=== PATIENT | female | born 1985 | race Caucasian/White ===

== ENCOUNTER 2022-06-20 15:08 | Outpatient (CLI) | payer OTHER, SELFPAY ==
[2022-06-20 17:46] LABS: Cholesterol* 181 mg/dL (90-199); Triglycerides* 92 mg/dL (40-149)
[2022-06-20 17:47] LABS: HDL Cholesterol* 77 mg/dL (>=50); LDL Cholesterol Calculated 86 mg/dL (<100)
[2022-06-20 18:11] LABS: TSH With Reflex to FT4* 0.957 uIU/mL (0.270-4.200)
[2022-06-22 22:35] LABS: Prolactin 13.1 ng/mL (2.8-29.2)
[2022-06-26 09:29] LABS: Testosterone, Low Level 27 ng/dL (9-55)
== END 2022-06-20 15:09 | disposition home or self-care (01) ==
PROVIDERS: Visit Provider Physician Assistant
DX: N92.6 Irregular menstruation, unspecified (principal)
CPT/HCPCS: 80061; 84146; 84403; 84443

== ENCOUNTER 2022-10-10 14:53 | Outpatient (CLI) | payer OTHER, SELFPAY ==
--- NOTE | 2022-10-10 15:00 | CRLHL7_ITS ---
For Patients: As a result of the Cures Act, medical imaging exams and procedure reports are released immediately into your electronic medical record. You may view this report before your referring provider. If you have questions, please contact your health care provider. INDICATION: First trimester scan, establish dates. COMPARISON: None. TECHNIQUE: Real-time oneal-scale imaging of the pelvis was performed. FINDINGS: Sonographic imaging demonstrates a single living intrauterine gestation. The embryo demonstrates a regular cardiac rate measuring 176 beats per minute. The embryo`s crown-rump length measurement of 1.9 cm corresponds to a gestational age of 8 weeks 3 days with a sonographic due date of May 19, 2023. There is a normal-appearing yolk sac measuring up to 3.2 mm. There are no gross abnormalities noted within the embryo at this early state of development. The placenta has not yet developed. The gestational sac has a normal appearance and there is no evidence of a perigestational hemorrhage. The amount of fluid within the sac appears appropriate for gestational age. The cervix is closed. The myometrium appears normal. The ovaries are of normal size. The right ovary measures 4.8 x 1.2 x 2 cm. The left ovary measures 4.5 x 1.6 x 1.4 cm. Small corpus luteum cyst of in the left ovary measuring 2.0 x 1.4 x 1.6 cm. There is a small left para ovarian cyst measuring 1.4 x 0.8 x 1.3 cm. There are no suspicious fluid collections noted in the cul-de-sac. IMPRESSION: Normal first trimester OB ultrasound exam. Gestational age calculated at 8 weeks 3 days with a sonographic due date of May 19, 2023. Dictated by Hakeem Strauss MD @ 10/10/2022 5:01:01 PM (Electronically Signed)
== END 2022-10-10 14:54 | disposition home or self-care (01) ==
LOC: US 14:54
PROVIDERS: Visit Provider Registered Nurse
DX: Z34.91 Encounter for supervision of normal pregnancy, unspecified, first trimester (principal); Z3A.08 8 weeks gestation of pregnancy
CPT/HCPCS: 76817; 86703; 86803; 86850; 86900; 86901; 87340; 87491; 87591

== ENCOUNTER 2022-10-10 16:05 | Outpatient (CLI) | payer OTHER, SELFPAY ==
[2022-10-10 23:02] LABS: Chlamydia DNA Amplified* NOT DETECTED (No Detected); GC DNA Amplified* NOT DETECTED (No Detected)
== END 2022-10-10 16:06 | disposition home or self-care (01) ==
PROVIDERS: Visit Provider Registered Nurse
DX: Z34.91 Encounter for supervision of normal pregnancy, unspecified, first trimester (principal); Z3A.08 8 weeks gestation of pregnancy
CPT/HCPCS: 86592; 86703; 86762; 86787; 86803; 86850; 86900; 86901; 87086; 87340; 87491; 87591

== ENCOUNTER 2023-01-05 10:47 | Outpatient (CLI) | payer OTHER, SELFPAY ==
--- NOTE | 2023-01-05 11:00 | CRLHL7_ITS ---
For Patients: As a result of the Century Cures Act, medical imaging exams and procedure reports are released immediately into your electronic medical record. You may view this report before your referring provider. If you have questions, please contact your health care provider. INDICATION: Evaluate anatomy. COMPARISON: 10/10/2022 TECHNIQUE: Real time oneal scale imaging of the fetus was performed as well as color Doppler analysis of the umbilical vessels. FINDINGS: Sonographic imaging demonstrates a single living intrauterine gestation. Fetus demonstrates a regular cardiac rate of 141 beats per minute. Fetus has a variable position. The placenta lies right-sided without evidence of placenta previa. The placental edge is 3.1 cm from the internal cervical os. Amniotic fluid volume appears normal. Single deepest vertical pocket: 5.0 cm. The cervix is closed and measures 4.2 cm in length. The composite ultrasound gestational age is calculated at 20 weeks 3 days with an estimated sonographic due date of 05/22/2023. The estimated weight is 391 grams which lies at the 44th %. The following biometric measurements were obtained: Biparietal diameter: 4.5 cm/19 weeks 5 days 8th% Head circumference: 17 point a cm/20 weeks 2 days 13th% Abdominal circumference: 16.4 cm/21 weeks 3 days 59th% Femur length: 3.4 cm/20 weeks 5 days 31st% The HC/AC ratio measures: 1.08 range (1.07-1.25) On anatomic survey, there is a normal appearance of the cerebral ventricles, cavum septi pellucidi, cisterna magna and cerebellum. The nose, lips, and facial profile appear normal. The cervical, thoracic and lumbar spine are well visualized and appear normal. There is a normal four-chamber heart view and the left and right ventricular outflow tracts appear normal. The diaphragm and stomach appear normal. The kidneys and bladder also appear normal. There is a normal three-vessel cord and cord insertion site. The four extremities appear normal. IMPRESSION: Normal OB ultrasound exam with concordance of clinical and sonographic dating. No intrinsic abnormalities noted on anatomic survey. Dictated by Leandro Martinez MD @ 01/05/2023 11:53:20 AM (Electronically Signed)
== END 2023-01-05 10:48 | disposition home or self-care (01) ==
LOC: US 10:47
PROVIDERS: Visit Provider Advanced Practice Midwife
DX: Z34.92 Encounter for supervision of normal pregnancy, unspecified, second trimester (principal); Z3A.20 20 weeks gestation of pregnancy
CPT/HCPCS: 76805

== ENCOUNTER 2023-02-12 14:56 | Outpatient (CLI) | payer OTHER, SELFPAY ==
[2023-02-12 14:30] VITALS: BP 120/78; PULSE 82; RESP 14; TEMP 36.9; O2SAT 98; BMI 35.2
--- NOTE | 2023-02-12 14:48 | ED.NURSE ---
Called OB RN to discuss Pt, per OB assessment protocol. Per Julia OB RN Pt to be seen in OB. UA brought to lab by [facility].
[2023-02-12 15:05] VITALS: PULSE 86; O2SAT 98
[2023-02-12 15:24] VITALS: PULSE 73; RESP 16; TEMP 36.8; O2SAT 95
[2023-02-12 15:25] VITALS: BP 114/67; PULSE 74
[2023-02-12 15:41] VITALS: BP 90/52; PULSE 77
[2023-02-12 15:47] VITALS: BP 103/60; PULSE 75
[2023-02-12 15:50] LABS: Appearance Urine Slightly Cloudy (Clear); Bilirubin Urine Negative (Negative); Blood Urine Negative (Negative); Color Urine Yellow (Yellow); Glucose Urine Negative (Negative); Ketones Urine Negative (Negative); Leukocyte Esterase Urine Negative (Negative); Nitrite Urine Negative (Negative); Protein Urine Negative (Negative); Urobilinogen Urine 0.2 (0.2-1.0)
--- NOTE | 2023-02-12 16:20 | PC.OBNST ---
NST Note NST Note Start: 02/12/23 15:08 Freq: ONCE Status: Active Protocol: Document 02/12/23 16:17 LUIS (Rec: 02/12/23 16:20 AAP [id number]) NST Note 2 Para (# of births) 1 EDC 05/18/23 Gestational Age In Weeks & Days 26 Weeks & 3 Days Patient Presented with Complaint(s) of Other Other Complaints Concerns for elevated blood pressure and reports of shortness of breath and lightheadedness in the am today. Reactive Yes Appropriate for Gestational Age Yes NUSRAT Chaney, RN Date 02/12/23 Reactive Yes Appropriate for Gestational Age Yes NUSRAT Hung, RNC Date 02/12/23 OB NST charge Yes Complete NST Note via Write Note Yes The provider's electronic signature indicates the NST is reactive/appropriate for gestational age. *Note to provider: If an addendum is required, open the patient's chart and click on the note under the Nurse/Allied Health tab.
[2023-02-12 16:26] LABS: Bacteria Urine Moderate; RBC Urine 0-2 (0-2); Squamous Epithelial Cell Urine Few (None-Few); WBC Urine 0-2 (0-5)
== END 2023-02-12 16:15 | disposition home or self-care (01) ==
LOC: OB CLI 14:56 → OB 14:57
PROVIDERS: Visit Provider Advanced Practice Midwife
DX: O09.522 Supervision of elderly multigravida, second trimester (principal); Z3A.25 25 weeks gestation of pregnancy
CPT/HCPCS: 59025; 81003; 81015; 87086; 99213

== ENCOUNTER 2023-02-23 08:38 | Outpatient (CLI) | payer OTHER, SELFPAY | END 2023-02-23 08:39 | disposition home or self-care (01) | LOC: NFLDREF 08:39 | PROVIDERS: Visit Provider Advanced Practice Midwife | DX: O09.523 Supervision of elderly multigravida, third trimester (principal); O26.899 Other specified pregnancy related conditions, unspecified trimester; Z67.91 Unspecified blood type, Rh negative; Z3A.28 28 weeks gestation of pregnancy | CPT/HCPCS: 86592; 86850; J2791 ==

== ENCOUNTER 2023-04-03 08:29 | Outpatient (CLI) | payer OTHER, SELFPAY | END 2023-04-03 08:30 | disposition home or self-care (01) | LOC: NFLDREF 04-04 11:46 | PROVIDERS: Visit Provider Physician Assistant | DX: Z34.93 Encounter for supervision of normal pregnancy, unspecified, third trimester (principal); O09.523 Supervision of elderly multigravida, third trimester; Z3A.33 33 weeks gestation of pregnancy | CPT/HCPCS: 82728 ==

== ENCOUNTER 2023-04-17 08:30 | Outpatient (CLI) | payer OTHER, SELFPAY ==
[2023-04-18 22:06] LABS: Strep B DNA Probe Negative (Negative); Strep B Susceptibility Needed? No
== END 2023-04-17 08:31 | disposition home or self-care (01) ==
LOC: NFLDREF 09:24
PROVIDERS: Visit Provider Physician Assistant
DX: O09.523 Supervision of elderly multigravida, third trimester (principal)
CPT/HCPCS: 87081; 87653

== ENCOUNTER 2023-05-08 15:53 | Outpatient (CLI) | payer OTHER, SELFPAY ==
--- NOTE | 2023-05-08 16:22 | PM.OBLDTN ---
OB - Triage/Final Diagnosis Visit Information Time Seen by Provider: 16:22 Date Seen: 05/08/23 Date of evaluation: 05/08/23 Narrative: Clary was sent over from the clinic. She was seen today for a routine visit, including an NST. The CNM in clinic was concerned about variable decels noted on the NST. There was also concern for ongoing spots in her vision that linger, but resolve in under 30 minutes. She has checked her blood pressure each time this has occurred, and it has been normal (which she has confirmed with her brother who is an OB). Upon further discussion, these vision changes are identical to what she experiences when she has a migraine w/ aura. She denies any hx of preeclampsia with her previous . G 2 P 1 GA: 38.4 movement: present Ctx: q 2-4 minutes, she denies feeling them at this time ROM: denies Bleeding: denies Discharge: denies Current : GBS: negative 1. BMI 36.7. Recommended 11-20lb weight gain. Hemoglobin A1C: 5.1 Recommend daily baby aspirin starting at 12 weeks to reduce risk of preeclampsia. Declines. Recommend weekly NST and/or BPP starting at 37 weeks 2. Advanced Maternal Age Genetic Screening: desires MaterniT 21. Level 2 Ultrasound-declines 3. Rh negative Rhogam at 28 weeks: received Rhogam PP: 4. Anemia. Hgb 10.4 at 28 wks. 34 weeks: 10.6 - iron BID qod Physical: Vital Signs FHTs: Placed on EFM on arrival to triage. Fetus very active, audible movement noted and difficult to trace at first. Hiccups also noted. Suspect possibility of baseline is 125 with accels, but unable to determine that it's not baseline 155 with decels. Assessment: at 38.4 weeks Variable decels on NST in the clinic Vision changes Plan: FHTs monitored, with indeterminant baseline. Reviewed w/ Dr. Mejia, who agreed not likely decelerations. Decision made to proceed with BPP. 6/8, 2 points off for breathing. Placed back on monitor once done, and FHTs 115 baseline, moderate variability, accels present, no decels. Ctx continued q 2-4 min, denies feeling them. BPP 8/10 after reactive NST. Pt DC'd home. Reviewed vision changes are likely migraines with auras. We reviewed the signs to watch for r/t to preeclampsia. She will also call if they do not resolve within 30 mins. Final Diagnosis (1) AMA (advanced maternal age) multigravida 35+: Status: Acute (2) heart rate decelerations affecting management of mother: Status: Acute (3) Migraine aura occurring with and without headache: Status: Acute
--- NOTE | 2023-05-08 17:01 | CRLHL7_ITS ---
For Patients: As a result of the Century Cures Act, medical imaging exams and procedure reports are released immediately into your electronic medical record. You may view this report before your referring provider. If you have questions, please contact your health care provider. INDICATION: Indeterminant NST. COMPARISON: None. TECHNIQUE: Ultrasound OB pelvis biophysical profile. Real time oneal scale imaging of the fetus was performed without non-stress testing. FINDINGS: Sonographic imaging demonstrates a single living intrauterine gestation. The fetus demonstrates a regular cardiac rate of 116 beats per minute. The fetus has a cephalic orientation. The placenta lies along the right uterine wall. Amniotic fluid volume appears normal with single deepest pocket measuring 6.9 cm and the amniotic fluid index measuring 18.8 cm (2/2). The fetus was active (2/2). There was normal flexion and extension of the trunk and extremities (2/2). The fetus did not demonstrate at least 30 seconds of continuous breathing movements (0/2). IMPRESSION: Biophysical profile score 6 out of 8. Dictated by Luz Pérez MD @ 05/08/2023 6:44:23 PM (Electronically Signed)
--- NOTE | 2023-05-08 18:44 | PC.OBNST ---
NST Note NST Note Start: 05/08/23 15:57 Freq: ONCE Status: Active Protocol: Document 05/08/23 18:40 JEAN CARLOSDebra (Rec: 05/08/23 18:43 JEAN CARLOSDebra [id number]) NST Note 2 Para (# of births) 1 EDC 05/18/23 Gestational Age In Weeks & Days 38 Weeks & 4 Days High Risk Factors Advanced Maternal Age Patient Presented with Complaint(s) of Other Other Complaints 3 Variables were observed during a routine NST in [facility] visit. Pt sent down to OB for further observation. Baseline indeterminant, US/BPP ordered and 09/28, -2 for breathing. NST then reactive Reactive Yes Appropriate for Gestational Age Yes RN Zoey RN Date 05/08/23 Reactive Yes Appropriate for Gestational Age Yes NUSRAT Rust RN Date 05/08/23 OB NST charge Yes Complete NST Note via Write Note Yes The provider's electronic signature indicates the NST is reactive/appropriate for gestational age. *Note to provider: If an addendum is required, open the patient's chart and click on the note under the Nurse/Allied Health tab.
== END 2023-05-08 18:35 | disposition home or self-care (01) ==
LOC: OB OUT 15:55 → OB 15:55
PROVIDERS: Visit Provider Advanced Practice Midwife
DX: O09.523 Supervision of elderly multigravida, third trimester (principal); O36.8330 Maternal care for abnormalities of the fetal heart rate or rhythm, third trimester, not applicable or unspecified; Z3A.38 38 weeks gestation of pregnancy
CPT/HCPCS: 59025; 76819; G0463

== ENCOUNTER 2023-05-14 17:43 | Outpatient (CLI) | payer OTHER, SELFPAY ==
--- OUTSIDE RECORDS SUMMARY | 2023-05-14 17:44 | XMS_ITS | Clinical Summary ---
Author Name Unknown Organization [id number] Address [place], [place] [address] Care Team Providers Care Junior Software Engineer Name Role Phone Pcp, No Primary Care Provider Unavailabl e Allergies Active Allergy Reactions Criticality Noted Date Comments Penicillins Hives 11/20/2008 Medications Medication Sig Dispensed Refills Start Date End Date Status Ferrous Gluconate 324 mg (38 mg iron) tablet TAKE 1 TABLET(324MG) BY MOUTH DAILY TAKE WITH FOOD. 0 01/06/2021 Active ibuprofen (ADVIL; MOTRIN) 600 mg tablet Take 600 mg by mouth every 6 hours if needed. 0 02/02/2021 Active Active Problems Problem Noted Date Diagnosed Date s/p right middle finger mass excision, DOS: 11/28/[address] Angelito Cervantes 12/08/2016 Finger mass, right 11/22/2016 Resolved Problems Problem Noted Date Diagnosed Date Resolved Date Endometriosis 04/12/2012 04/12/2012 Immunizations Name Administration Dates Next Due Tdap 11/25/2015 Family History Medical History Relation Name Comments Cancer Maternal Grandfather jaw Hypertension Maternal Grandfather Lymphoma Maternal Grandmother Heart Disease Paternal Grandfather Cancer-breast Paternal Grandmother Relation Name Status Comments Maternal Grandfather Maternal Grandmother Paternal Grandfather Paternal Grandmother Social History Tobacco Use Types Packs/Day Years Used Date Smoking Tobacco: Former Cigarettes 0.2 9.2 S tarted: 02/12/2014 Smokeless Tobacco: Never Tobacco Cessation:Counseling Given: Yes Alcohol Use Standard Drinks/Week Comments Not Currently 0 (1 standard drink = 0.6 oz pur e alcohol) heavy social/ PHQ-2 Answer Date Recorded PHQ-2 Score 1 06/22/2018 Social Connections Answer Date Recorded Frequency of Communication with Friends and Fami ly Not on file 04/23/2021 Financial Resource Strain Answer Date R ecorded Difficulty of Paying Living Expenses Not on file 04/23/2021 Difficulty of Paying Living Expenses Not on file 04/23/2021 Sex and Gender Information Value Date Recorded Sex Assigned at Not on file Gender Identity Not on file Sexual Orientation Not on file Obstetrics History Last Filed Vital Signs Vital Sign Reading Time Taken Comments Blood Pressure 121/77 02/09/2021 8:57 AM CDT Pulse 63 02/09/2021 8:57 AM CDT Temperature 37 ??C (98.6 ??F) 02/09/2021 8:57 AM CDT Respiratory Rate 12 04/25/2017 11:27 AM SCIENTIFIC ARTIST Oxygen Saturation 98% 02/09/2021 8:57 AM CDT Inhaled Oxygen Concentration - - Weight 90.4 kg (199 lb 3.2 oz) 02/09/2021 8:57 A M CDT Height 168.8 cm (5' 6.44) 12/18/2017 10:39 AM C DT Body Mass Index 31.73 12/18/2017 10:39 AM CDT Plan of Treatment Health Maintenance Due Date Last Done Comments COVID-19 vaccine series (#1) 1987 HIV for age 15-65 2002 Hepatitis C screening for age 18-79 2005 Depression screening for age 12+ 11/13/2018 11/13/2017, 10/04/2016, 10/04/2016, Additional history exists BMI (ht and wt on same day) for age 18+ 12/18/2018 12/18/2017, 11/13/2017, 05/18/2017, Additional history exists Influenza for age 9-49 12/22/2022 Pap test for age 21-65 03/21/2024 , 03/21/2021, 10/04/2016, Additional history exists Tetanus booster 11/24/2025 11/25/2015 Tdap Completed 11/25/2015 Pneumococcal series for age 6-64 Aged Out No longer eligible based on patient's age to complete this topic Care Teams Junior Software Engineer Relationship Specialty Start Date End Date Pcp, No . PCP - General 02/09/21
--- OUTSIDE RECORDS SUMMARY | 2023-05-14 17:45 | XMS_ITS | Data Portability ---
Author Name Unknown Address [address] [place] [address] Phone [phone] Organization [facility] [employer], autoContract - [id number] Address [address] [place] [address] Assessment No assessment recorded. Plan of Treatment Reminders Order Date Submit Date Provider Last Modified By Organization Details Last Modified Time Details Appointments None recorded. Lab urinalysis , dipstick 2019 020 In-House Results, For Internal Use Only, Do Not Delete/merge, [id number] 13:57:54 HPV E6+E7 mRNA, reflex to HPV 16+18+45 2019 020 [facility], [address] [place], [address], 0 18:44:29 Referral None recorded. Procedures None recorded. Surgeries None recorded. Imaging None recorded. Medication Orders None recorded. Patient TargetsNo targets recorded. Patient Instructions Encounter Date Encounter Id Patient Instructions Last Modified By Organization Details Last Modified Time 10/23/2019 [id number] Desire expectant management for now. Pt instructed to call if decide to discuss control options. Not available 10/23/2019 09:43:54 09/25/2019 [id number] healthy living, preventative services information Not available 09/25/2019 13:57:54 nutrition tips - healthy start on eating smart Not available 09/25/2019 13:57:54 Reason for Referral None Reported. Results Created Date Observation Date Name Description Value Unit Range Abnormal Flag LastModifiedBy Organization Detail LastModifiedTime 09/25/2019 urina lysis , dipst ick Unknown Analyte Clean Catch Not Available In-House Results For Internal Use Only, Do Not Delete/merge, 09/25/2019 10:51:31 09/25/2019 urina lysis , dipst ick Unknown Analyte Negati ve Not Available In-House Results For Internal Use Only, Do Not Delete/merge, 09/25/2019 10:51:31 09/25/2019 urina lysis , dipst ick Unknown Analyte Negati ve Not Available In-House Results For Internal Use Only, Do Not Delete/merge, 09/25/2019 10:51:31 09/25/2019 urina lysis , dipst ick Unknown Analyte Negati ve Not Available In-House Results For Internal Use Only, Do Not Delete/merge, 09/25/2019 10:51:31 09/25/2019 urina lysis , dipst ick Unknown Analyte 1.000 Not Available In-House Results For Internal Use Only, Do Not Delete/merge, 09/25/2019 10:51:31 09/25/2019 urina lysis , dipst ick Unknown Analyte Negati ve Not Available In-House Results For Internal Use Only, Do Not Delete/merge, 09/25/2019 10:51:31 09/25/2019 urina lysis , dipst ick Unknown Analyte 5.0 Not Available In-House Results For Internal Use Only, Do Not Delete/merge, 09/25/2019 10:51:31 09/25/2019 urina lysis , dipst ick Unknown Analyte Negati ve Not Available In-House Results For Internal Use Only, Do Not Delete/merge, 09/25/2019 10:51:31 09/25/2019 urina lysis , dipst ick Unknown Analyte 0.2 Not Available In-House Results For Internal Use Only, Do Not Delete/merge, 09/25/2019 10:51:31 09/25/2019 urina lysis , dipst ick Unknown Analyte negati ve Not Available In-House Results For Internal Use Only, Do Not Delete/merge, 09/25/2019 10:51:31 09/25/2019 urina lysis , dipst ick Unknown Analyte Negati ve Not Available In-House Results For Internal Use Only, Do Not Delete/merge, [id number] 09/25/2019 10:51:31 09/25/2019 urina lysis , dipst ick Unknown Analyte Yellow Not Available In-House Results For Internal Use Only, Do Not Delete/merge, 09/25/2019 10:51:31 09/25/2019 urina lysis , dipst ick Unknown Analyte Clear Not Available In-House Results For Internal Use Only, Do Not Delete/merge, 09/25/2019 10:51:31 09/25/19 20 09/25/2019 HPV E6+E7 mRNA, refle x to HPV 16+18 +45 other info other inform ation Not Available [facility] [address] [place], [address], 09/29/2019 18:44:29 09/25/1909/29/2019 HPV E6+E7 mRNA, refle x to HPV 16+18 +45 cervix,thinp rep vial Not Available [facility] [address] [facility], [place], [address], 09/29/2019 18:44:29 09/25/19 20 09/29/2019 HPV E6+E7 mRNA, refle x to HPV 16+18 +45 HPV HR (high risk) result negati ve Not Available [facility] [address] [facility], [place], [address], 09/29/2019 18:44:29 Result Notes None recorded. Problems Name Status Onset Date Resolution Date Notes Provider Name and Address Organization Details Recorded Time History of abnormal cervical Papanicolaou smear Active 09/25/19 20 Camille Alejo [facility] [employer] [facility] 09/25/2019 10:57:26 History of human papilloma virus infection Active 09/25/19 [facility] 09/25/2019 10:57:36 Cigarette smoker Active 09/25/19 Camille Alejo [facility] 09/25/2019 14:59:48 Problem Notes None recorded. Procedures Surgical History Date Name Laterality Status Provider Name and Address Organization Details Recorded Time 0 Nexplanon / Implanon Removal Procedure Note ([facility] 09:28:50 0 Date of Last Pap Smear [facility]30[facility]2019 16:47:05 ENT- Other [facility]/25/2019 15:01:21 Imaging Results None recorded. Procedure Notes None recorded. Medical Equipment None Reported. Allergies Allergen ID Allergen Name Allergen Category Reaction Reaction Severity Criticality Documentation Date Start Date Code Code System Note Provider Name and Address Organization Details Recorded Time 0476662 Medicinal product containin g penicilli n and acting as antibacte rial agent (product) medicatio n rash Not available Not available 09/25/2019 25213 05 SNOMED [facility] 0 10:55:34 Medications Name Sig Start Date Stop Date Status Note LastModified by Organization Details LastModified Time Nexplanon 68 mg subdermal implant Inject by subcutaneous route. active Not Available Not Available No t Available Vitals Date Recorded Body weight Body mass index (BMI) Body height Heart rate Systolic blood pressure Diastolic blood pressure Provider Name and Address Organization Details Last Updated DateTime 0 37280.9 5 g 34.9 kg/m2 167.64 cm 66 /min 122 mm[Hg] 76 mm[Hg] Camille Alejo [facility] 0 10:55:19 Date Recorded Body height Body mass index (BMI) Body weight Systolic blood pressure Diastolic blood pressure Provider Name and Address Organization Details Last Updated DateTime 10/23/2019 167.64 cm 34.9 kg/m2 03548.95 g 122 mm[Hg] 76 mm[Hg] Camille Alejo [facility] 0 09:27:49 Social History Question Answer Notes LastModified by Organizat ion Details LastModified Time Tobacco Smoking Status Current Every Day [facility] 09/25/2019 14:59:57 What Is Your Level Of Alcohol Consumption? Occasional [email or web address] Information not available 09/25/2019 Is Blood Transfusion Acceptable In An Emergency? Yes [email or web address] Information not available 09/25/2019 What Is Your Level Of Caffeine Consumption? Moderate [email or web address] Information not available 09/25/2019 How Much Tobacco Do You Chew? None [email or web address] Information not available 09/25/2019 What Type Of Diet Are You Following? REGULAR [email or web address] Information not available 09/25/2019 Do You Or Have You Ever Used E-cigarettes Or Vape? Never Used Electronic Cigarettes [email or web address] Information not available 09/25/2019 Education Post Graduate [email or web address] Informatio n not available 09/25/2019 What Is Your Occupation? Teacher [email or web address] Information not available 09/25/2019 How Many Days In The Past Year Have You Had A Heavy Drinking Consumption (4+ Female, 5+ Male)? 0 [email or web address] Information not available 09/25/2019 Illicit Drugs? No [email or web address] Informati on not available 09/25/2019 History Of Domestic Violence No Information not available 09/25/2019 Marital Status [email or web address] Informati on not available 09/25/2019 Seat Belts Used Routinely Yes [email or web address] Information not available 09/25/2019 Do You Or Have You Ever Used Smokeless Tobacco? Never Used Smokeless Tobacco [email or web address] Information not available 09/25/2019 How Much Tobacco Do You Smoke? 0.25 PPD [email or web address] Information not available 09/25/2019 On What Date Was Tobacco Cessation Counseling Provided? 09/25/2019 [email or web address] Information not available 09/25/2019 How Many Years Have You Smoked Tobacco? 10 [email or web address] Information not available 09/25/2019 Do You Have Symptoms Associated With Zika Virus (fever, Rash, Joint Pain, Or Conjunctivitis)? No [email or web address] Information not available 09/25/2019 Have You Recently (within The Last 12 Weeks, Or During A Current ) Traveled To Or Lived In A Zika-affected Area? No [email or web address] Information not available 09/25/2019 Sex: Female Functional Status Question Answer Note LastModified by Organizat ion Details LastModified Time Urinary incontinence assessment performed? Yes [email or web address] Information not available 09/25/2019 What is your exercise level? Occasional [email or web address] Information not available 09/25/2019 Mental Status None recorded. Family History Relationship Description Onset Age of this Age Resolved Age Notes Maternal Grandfather Hypertensive disorder Paternal Grandfather Heart disease Medical History Condition Response ID-Chicken Pox/Shingles Y Gynecological History Statement/Question Response Current Control Method: Nexplanon Sexually active Y Date of LMP 09/14/2019 History of Sexually Transmitted Infectio n Y HPV Test Negative HPV Vaccination Not applicable History of abnormal PAP Yes Date of Last Pap Smear 09/25/2019 Age at Menarche 20 Sexual orientation Heterosexual History of Vulvar Dysplasia N Obstetrics History GPAL:G 0 P 0 0 0 0 Past Encounters Encounter ID Performer Location Encounter Start Date Encounter Closed Date Diagnosis/Indication [id number] DR KLARISSA BOLDEN MD [id number] R [address] [place] [address] 09/25/2019 10:03:24 09/25/2019 11:37:28 Gynecologic examination Increased body mass index History of human papilloma virus infection Cigarette smoker [id number] DR KLARISSA BOLDEN MD [id number] R [address] [place] [address] 10/23/2019 09:03:02 10/23/2019 09:48:58 Removal of subcutaneous contraceptive Health Concerns Section Related Observation LastModified by Organization Detai ls LastModified Time None Recorded Concern Status LastModified by Organization Details LastModified Time None Recorded Advance Directives Directive None Recorded Payers Encounter Date Sequence Insurance Name Policy Number Policy Yousif Covered Member ID Yousif Member ID Guarantor Name 10/23/2019 1 [employer] [id number] Roshan Diaz [id number] Clary Diaz 09/25/2019 1 [employer] [id number] Roshan Diaz [id number] Clary Diaz Notes Date Note Type Note Provider Name and Address Organization Details Recorded Time 09/25/2019 text/html HPI Notes: Annua l Premenopausal ([facility]) Reported by patient. Patient Relationship to Practice: new patient Current Medical History: no active medical problems; no recent surgeries or hospitalizations Relevant Family History: no family history of breast cancer; no family history of ovarian cancer; no family history of uterine cancer; no family history of colon cancer; no family history of blood clots/DVT Contraceptive Method: Current Method Used: Nexplanon; satisfied Sexually Active: Yes: Health/Prevention: Exercise: yes; Seat Belt Use: yes; Tobacco Use: yes Pap Smear +/- HPV Cotesting: due In office for WW exam. No complaints. Using nexplanon for contraception, due to be removed next month. Denies any GI or symptoms. DR KLARISSA BOLDEN MD [address], [address], [place], [address], [facility] 09/26/2019 23:27:12 10/23/2019 text/html HPI Notes: 34 y/ o Patient here for Nexplanon removal. Was inserted 3 years ago. Does not want to resume any contraceptive method at current time. No complaints. DR KLARISSA BOLDEN MD [address], [address], [place], [address], [facility] [employer] 10/23/2019 09:43:59 OBGyn Episode No OBEpisode recorded.
[2023-05-14 18:05] VITALS: BP 119/72; PULSE 76; TEMP 37.4
--- NOTE | 2023-05-14 18:32 | PC.OBNST ---
The provider's electronic signature indicates the NST is reactive/appropriate for gestational age. *Note to provider: If an addendum is required, open the patient's chart and click on the note under the Nurse/Allied Health tab.
== END 2023-05-14 18:24 | disposition home or self-care (01) ==
LOC: OB OUT 17:43 → OB 17:44
PROVIDERS: Visit Provider Advanced Practice Midwife
DX: O47.1 False labor at or after 37 completed weeks of gestation (principal); Z3A.39 39 weeks gestation of pregnancy
CPT/HCPCS: 59025; G0463

== ENCOUNTER 2023-05-17 17:48 | Outpatient (CLI) | payer OTHER, SELFPAY ==
--- OUTSIDE RECORDS SUMMARY | 2023-05-17 17:51 | XMS_ITS | Data Portability ---
Author Name Unknown Address [address] [place] [address] Phone [phone] Organization [facility] [employer], autoContract - [id number] Address [address] [place] [address] Assessment No assessment recorded. Plan of Treatment Reminders Order Date Submit Date Provider Last Modified By Organization Details Last Modified Time Details Appointments None recorded. Lab urinalysis , dipstick 2019 020 In-House Results, For Internal Use Only, Do Not Delete/merge, [id number] 0 13:57:54 HPV E6+E7 mRNA, reflex to HPV 16+18+45 2019 020 [facility], [address] [place], [address], 0 18:44:29 Referral None recorded. Procedures None recorded. Surgeries None recorded. Imaging None recorded. Medication Orders None recorded. Patient TargetsNo targets recorded. Patient Instructions Encounter Date Encounter Id Patient Instructions Last Modified By Organization Details Last Modified Time 10/23/2019 [id number] Desire expectant management for now. Pt instructed to call if decide to discuss control options. Not available 10/23/2019 09:43:54 09/25/2019 [id number] healthy living, preventative services information Not available [...] For Internal Use Only, Do Not Delete/merge, [id number] 09/25/2019 10:51:31 09/25/2019 urina lysis , dipst [...] other info other inform ation Not Available [facility] [address] [place], [address], 09/29/2019 18:44:29 09/25/1909/29/2019 HPV E6+E7 mRNA, refle x to HPV 16+18 +45 cervix,thinp rep vial Not Available [facility] [address] [facility], [place], [address], 09/29/2019 18:44:29 09/25/19 20 09/29/2019 HPV E6+E7 mRNA, refle x to HPV 16+18 +45 HPV HR (high risk) result negati ve Not Available [facility] [address] [facility], [place], [address], 09/29/2019 18:44:29 Result Notes None recorded. Problems Name Status Onset Date Resolution Date Notes Provider Name and Address Organization Details Recorded Time History of abnormal cervical Papanicolaou smear Active 09/25/19 20 Camille Alejo [facility] [employer] [facility] 09/25/2019 10:57:26 History of human papilloma virus infection Active 09/25/19 [facility] [employer] [facility] 09/25/2019 10:57:36 Cigarette smoker Active 09/25/19 Camille Alejo [facility] [employer] [facility] 09/25/2019 14:59:48 Problem Notes None recorded. Procedures Surgical History Date Name Laterality Status Provider Name and Address Organization Details Recorded Time 0 Nexplanon / Implanon Removal Procedure Note ([facility]) [facility] 10/23/2019 09:28:50 0 Date of Last Pap Smear [facility] 09/30/2019 16:47:05 ENT- Other surgery [facility] 09/25/2019 15:01:21 Imaging Results None recorded. Procedure Notes None recorded. Medical Equipment None Reported. Allergies Allergen ID Allergen Name Allergen Category Reaction Reaction Severity Criticality Documentation Date Start Date Code Code System Note Provider Name and Address Organization Details Recorded Time 2066712 Medicinal product containin g penicilli n and acting as antibacte rial agent (product) medicatio n rash Not available Not available 09/25/2019 52108 05 SNOMED [facility] 0 10:55:34 Medications Name Sig Start Date Stop Date Status Note LastModified by Organization Details LastModified Time Nexplanon 68 mg subdermal implant Inject by subcutaneous route. active Not Available Not Available No t Available Vitals Date Recorded Body weight Body mass index (BMI) Body height Heart rate Systolic blood pressure Diastolic blood pressure Provider Name and Address Organization Details Last Updated DateTime 0 72503.9 5 g 34.9 kg/m2 167.64 cm 66 /min 122 mm[Hg] 76 mm[Hg] Camille Alejo [facility] 0 10:55:19 Date Recorded Body height Body mass index (BMI) Body weight Systolic blood pressure Diastolic blood pressure Provider Name and Address Organization Details Last Updated DateTime 10/23/2019 167.64 cm 34.9 kg/m2 12489.95 g 122 mm[Hg] 76 mm[Hg] Camille Alejo [facility] 0 09:27:49 Social History Question Answer Notes LastModified by Organizat ion Details LastModified Time Tobacco Smoking Status Current Every Day Smoker [facility] 09/25/2019 14:59:57 What Is Your Level Of Alcohol Consumption? Occasional [email or web address] Information not available 09/25/2019 Is Blood Transfusion Acceptable In An Emergency? Yes [email or web address] Information not available 09/25/2019 What Is Your Level Of Caffeine Consumption? Moderate [email or web address] Information not available 09/25/2019 How Much Tobacco Do You Chew? None [email or web address] Information not available 09/25/2019 What Type Of Diet Are You Following? REGULAR [email or web address] Information not available 09/25/2019 Do You Or Have You Ever Used E-cigarettes Or Vape? Never Used Electronic Cigarettes [email or web address] Information not available 09/25/2019 Education Post Graduate [email or web address] Informatio n not available 09/25/2019 What Is Your Occupation? Teacher [email or web address] Information not available 09/25/2019 How Many Days In The Past Year Have You Had A Heavy Drinking Consumption (4+ Female, 5+ Male)? 0 [email or web address] Information not available 09/25/2019 Illicit Drugs? No [email or web address] Informati on not available 09/25/2019 History Of Domestic Violence No [email or web address] Information not available 09/25/2019 Marital Status [email or web address] Informati on not available 09/25/2019 Seat Belts Used Routinely Yes cssumrnlo41 Information not available 09/25/2019 Do You Or Have You Ever Used Smokeless Tobacco? Never Used Smokeless Tobacco ncburyqxi00 Information not available 09/25/2019 How Much Tobacco Do You Smoke? 0.25 PPD Information not available 09/25/2019 On What Date Was Tobacco Cessation Counseling Provided? 09/25/2019 [email or web address] Information not available 09/25/2019 How Many Years Have You Smoked Tobacco? 10 [email or web address] Information not available 09/25/2019 Do You Have Symptoms Associated With Zika Virus (fever, Rash, Joint Pain, Or Conjunctivitis)? No [email or web address] Information not available 09/25/2019 Have You Recently (within The Last 12 Weeks, Or During A Current ) Traveled To Or Lived In A Zika-affected Area? No [email or web address] Information not available 09/25/2019 Sex: Female Functional Status Question Answer Note LastModified by Organizat ion Details LastModified Time Urinary incontinence assessment performed? Yes [email or web address] Information not available 09/25/2019 What is your exercise level? Occasional [email or web address] Information not available 09/25/2019 Mental Status None [...] Encounter Start Date Encounter Closed Date Diagnosis/Indication [id number] DR KLARISSA BOLDEN MD [id number] R [address] [place] [address] 09/25/2019 10:03:24 09/25/2019 11:37:28 Gynecologic examination Increased body mass index History of human papilloma virus infection Cigarette smoker [id number] DR KLARISSA BOLDEN MD [id number] R [address] [place] [address] 10/23/2019 09:03:02 10/23/2019 09:48:58 Removal of subcutaneous contraceptive Health Concerns Section Related Observation LastModified by Organization Detai ls LastModified Time None Recorded Concern Status LastModified by Organization Details LastModified Time None Recorded Advance Directives Directive None Recorded Payers Encounter Date Sequence Insurance Name Policy Number Policy Yousif Covered Member ID Yousif Member ID Guarantor Name 10/23/2019 1 [employer] [id number] Roshan Diaz [id number] Clary Diaz 09/25/2019 1 [employer] [id number] Roshan Diaz [id number] Clary Diaz Notes Date Note Type Note Provider Name and Address Organization Details Recorded Time 09/25/2019 text/html HPI Notes: Annua l Premenopausal ([facility]) Reported by patient. Patient Relationship to Practice: [...] symptoms. DR KLARISSA BOLDEN MD [address], [address], [place], [address], [facility] [employer] [facility] 09/26/2019 23:27:12 10/23/2019 text/html HPI Notes: 34 y/ o Patient here for Nexplanon removal. Was inserted 3 years ago. Does not want to resume any contraceptive method at current time. No complaints. DR KLARISSA BOLDEN MD [address], [place], [address], [facility] [employer] 10/23/2019 09:43:59 OBGyn Episode No OBEpisode recorded.
--- OUTSIDE RECORDS SUMMARY | 2023-05-17 17:51 | XMS_ITS | Clinical Summary ---
Author Name Unknown Organization [employer] [facility] Address [place], [place] [address] Care Team Providers Care Rotary Drum Dyer Name Role Phone Pcp, No Primary Care [...] Used Date Smoking Tobacco: Former Cigarettes 0.2 9.3 S tarted: 02/12/2014 Smokeless Tobacco: Never Tobacco [...] CDT Respiratory Rate 12 04/25/2017 11:27 AM BEEF BONER Oxygen Saturation 98% 02/09/2021 8:57 AM CDT [...] age to complete this topic Care Teams Rotary Drum Dyer Relationship Specialty Start Date End Date Pcp, No . PCP - General 02/09/21
[2023-05-17 18:27] VITALS: BP 120/76; PULSE 67
--- NOTE | 2023-05-17 18:42 | PM.OBLDTN ---
OB - Triage/Final Diagnosis Visit Information Date of evaluation: 05/17/23 Narrative: The patient is a 38 year old 2 para 1 at 39.6 weeks gestation by LMP accompanied by her partner, who presents with regular contractions every 2-4 minutes. She is olena regularly and is breathing through some of them but feels that they are still pretty mild. She denies leaking fluid and was appreciating good movement. We discussed options of going home to labor with labor precautions vs staying for 1-2 hours and rechecking cervix for change. She would like to stay for 1 hour to see if she makes any cervical change in that time. On admit she was found to be 2cm/60%/-3 per RN exam. Evaluation Cervical dilation (cm): 2 Cervical effacement (%): 60 Vital signs: Vital Signs - 24 hr 05/17/23 18:27 Pulse Rate 67 Blood Pressure 120/76 Fetus (Single) Heart Rate Baseline: 120 Manufacturing Machine Operator Variability: Moderate (6-25) Monitor Accelerations: Present Monitor Decelerations: None Station: -3 Final Diagnosis (1) AMA (advanced maternal age) multigravida 35+: Status: Acute (2) : Status: Acute (3) Type A blood, Rh negative: Status: Acute
--- NOTE | 2023-05-17 19:18 | PC.OBNST ---
NST Note NST Note Start: 05/17/23 17:52 Freq: ONCE Status: Active Protocol: Document 05/17/23 19:15 [facility] (Rec: 05/17/23 19:18 [facility] [id number]) NST Note 2 Para (# of births) 1 EDC 05/18/23 Gestational Age In Weeks & Days 39 Weeks & 6 Days High Risk Factors Advanced Maternal Age Patient Presented with Complaint(s) of Contractions/cramping Reactive Yes Appropriate for Gestational Age Yes NUSRAT [place] Date 05/17/23 Reactive Yes Appropriate for Gestational Age Yes NUSRAT [place] Date 05/17/23 OB NST charge Yes Complete NST Note via Write Note Yes The provider's electronic signature indicates the NST is reactive/appropriate for gestational age. *Note to provider: If an addendum is required, open the patient's chart and click on the note under the Nurse/Allied Health tab.
== END 2023-05-17 19:25 | disposition home or self-care (01) ==
LOC: OB OUT 17:49 → OB 17:49
PROVIDERS: Visit Provider Advanced Practice Midwife
DX: O47.1 False labor at or after 37 completed weeks of gestation (principal); O09.523 Supervision of elderly multigravida, third trimester; Z3A.39 39 weeks gestation of pregnancy
CPT/HCPCS: 59025; G0463

== ENCOUNTER 2023-05-25 12:12 | Outpatient (CLI) | payer OTHER, SELFPAY ==
--- OUTSIDE RECORDS SUMMARY | 2023-05-25 12:14 | XMS_ITS | Clinical Summary ---
Author Name Unknown Organization [employer] [facility] Address [place], [place] [address] Care Team Providers Care Foil Cutter Name Role Phone Pcp, No Primary Care [...] CDT Respiratory Rate 12 04/25/2017 11:27 AM NURSING PROJECT COORDINATOR Oxygen Saturation 98% 02/09/2021 8:57 AM CDT [...] age to complete this topic Care Teams Foil Cutter Relationship Specialty Start Date End Date Pcp, No . PCP - General 02/09/21
--- NOTE | 2023-05-25 12:15 | CRLHL7_ITS ---
For Patients: As a result of the Century Cures Act, medical imaging exams and procedure reports are released immediately into your electronic medical record. You may view this report before your referring provider. If you have questions, please contact your health care provider. INDICATION: Post-dates COMPARISON: 05/08/2023 TECHNIQUE: Real time oneal scale imaging of the fetus was performed. Without non-stress testing. FINDINGS: Sonographic imaging demonstrates a single living intrauterine gestation. Fetus demonstrates a regular cardiac rate of 159 beats per minute. Fetus has a vertex position. The amniotic fluid volume appears normal and there is a single deepest pocket measurement of 8.0 cm. The fetus was active and demonstrated normal breathing movements. There was normal flexion and extension of the trunk and extremities. IMPRESSION: Normal biophysical profile score of 8 out of 8. Dictated by Leandro Martinez MD @ 05/25/2023 1:48:58 PM (Electronically Signed)
--- OUTSIDE RECORDS SUMMARY | 2023-05-25 12:15 | XMS_ITS | Data Portability ---
Author Name Unknown Address [address] [place] [address] Phone [phone] Organization [facility] [employer], [employer]Contract - [id number] [facility] Address [address] [place] [address] Assessment No assessment recorded. Plan of Treatment Reminders Order Date Submit Date Provider Last Modified By Organization Details Last Modified Time Details Appointments None recorded. Lab urinalysis , dipstick 2019 020 In-House Results, For Internal Use Only, Do Not Delete/merge, [id number] 13:57:54 HPV E6+E7 mRNA, reflex to HPV 16+18+45 2019 020 [facility], [address] [place], [address], 0 18:44:29 Referral None recorded. Procedures None recorded. Surgeries None recorded. Imaging None recorded. Medication Orders None recorded. Patient TargetsNo targets recorded. Patient Instructions Encounter Date Encounter Id Patient Instructions Last Modified By Organization Details Last Modified Time 10/23/2019 [id number] Desire expectant management for now. Pt instructed to call if decide to discuss control options. Not available 10/23/2019 09:43:54 09/25/2019 [id number] healthy living, preventative services information Not available [...] For Internal Use Only, Do Not Delete/merge, [id number] 09/25/2019 10:51:31 09/25/2019 urina lysis , dipst [...] other info other inform ation Not Available [facility] [address] [place], [address], 09/29/2019 18:44:29 09/25/1909/29/2019 HPV E6+E7 mRNA, refle x to HPV 16+18 +45 cervix,thinp rep vial Not Available [facility] [address] [facility], [place], [address], 09/29/2019 18:44:29 09/25/19 20 09/29/2019 HPV E6+E7 mRNA, refle x to HPV 16+18 +45 HPV HR (high risk) result negati ve Not Available [facility] [address] [facility], [place], [address], 09/29/2019 18:44:29 Result Notes None recorded. Problems Name Status Onset Date Resolution Date Notes Provider Name and Address Organization Details Recorded Time History of abnormal cervical Papanicolaou smear Active 09/25/19 20 Camille Alejo [facility] 09/25/2019 10:57:26 History of human papilloma virus infection Active 09/25/19 [facility] 09/25/2019 10:57:36 Cigarette smoker Active 09/25/19 Camille Alejo [facility] 09/25/2019 14:59:48 Problem Notes None recorded. Procedures Surgical History Date Name Laterality Status Provider Name and Address Organization Details Recorded Time 0 Nexplanon / Implanon Removal Procedure Note ([facility]2019 09:28:50 0 Date of Last Pap Smear [facility] 09/30/2019 16:47:05 ENT- Other [facility] 09/25/2019 15:01:21 Imaging Results None recorded. Procedure Notes None recorded. Medical Equipment None Reported. Allergies Allergen ID Allergen Name Allergen Category Reaction Reaction Severity Criticality Documentation Date Start Date Code Code System Note Provider Name and Address Organization Details Recorded Time 4285088 Medicinal product containin g penicilli n and acting as antibacte rial agent (product) medicatio n rash Not available Not available 09/25/2019 97104 05 SNOMED [facility] 0 10:55:34 Medications Name Sig Start Date Stop Date Status Note LastModified by Organization Details LastModified Time Nexplanon 68 mg subdermal implant Inject by subcutaneous route. active Not Available Not Available No t Available Vitals Date Recorded Body weight Body mass index (BMI) Body height Heart rate Systolic blood pressure Diastolic blood pressure Provider Name and Address Organization Details Last Updated DateTime 0 54897.9 5 g 34.9 kg/m2 167.64 cm 66 /min 122 mm[Hg] 76 mm[Hg] Camille Alejo [facility] 0 10:55:19 Date Recorded Body height Body mass index (BMI) Body weight Systolic blood pressure Diastolic blood pressure Provider Name and Address Organization Details Last Updated DateTime 10/23/2019 167.64 cm 34.9 kg/m2 95293.95 g 122 mm[Hg] 76 mm[Hg] Camille Alejo [facility] 0 09:27:49 Social History Question Answer Notes LastModified by Organizat ion Details LastModified Time Tobacco Smoking Status Current Every Day [facility] 09/25/2019 14:59:57 What Is Your Level Of Alcohol Consumption? Occasional [email or web address] Information not available 09/25/2019 Is Blood Transfusion Acceptable In An Emergency? Yes Information not available 09/25/2019 What Is Your Level Of Caffeine Consumption? Moderate [email or web address] Information not available 09/25/2019 How Much Tobacco Do You Chew? None [email or web address] Information not available 09/25/2019 What Type Of Diet Are You Following? REGULAR [email or web address] Information not available 09/25/2019 Do You Or Have You Ever Used E-cigarettes Or Vape? 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 0 [email or web address] Information not available 09/25/2019 Illicit Drugs? No [email or web address] Informati on not available 09/25/2019 History Of Domestic Violence No [email or web address] Information not available 09/25/2019 Marital Status [email or web address] Informati on not available 09/25/2019 Seat Belts Used Routinely Yes [email or web address] Information not available 09/25/2019 Do You Or Have You Ever Used Smokeless Tobacco? Never Used Smokeless Tobacco [email or web address] Information not available 09/25/2019 How Much Tobacco Do You Smoke? 0.25 PPD Information not available 09/25/2019 On What Date Was Tobacco Cessation Counseling Provided? 09/25/2019 [email or web address] Information not available 09/25/2019 How Many Years Have You Smoked Tobacco? 10 [email or web address] Information not available 09/25/2019 Do You Have Symptoms Associated With Zika Virus (fever, Rash, Joint Pain, Or Conjunctivitis)? No [email or web address] Information not available 09/25/2019 Have You Recently (within The Last 12 Weeks, Or During A Current ) Traveled To Or Lived In A Zika-affected Area? No [email or web address] Information not available 09/25/2019 Sex: Female Functional Status Question Answer Note LastModified by Organizat ion Details LastModified Time Urinary incontinence assessment performed? Yes [email or web address] Information not available 09/25/2019 What is your exercise level? Occasional Information not available 09/25/2019 Mental Status None [...] Encounter Start Date Encounter Closed Date Diagnosis/Indication [id number] DR KLARISSA BOLDEN MD [id number] R [address] [place] [address] 09/25/2019 10:03:24 09/25/2019 11:37:28 Gynecologic examination Increased body mass index History of human papilloma virus infection Cigarette smoker [id number] DR KLARISSA BOLDEN MD [id number] R [address] [place] [address] 10/23/2019 09:03:02 10/23/2019 09:48:58 Removal of subcutaneous contraceptive Health Concerns Section Related Observation LastModified by Organization Detai ls LastModified Time None Recorded Concern Status LastModified by Organization Details LastModified Time None Recorded Advance Directives Directive None Recorded Payers Encounter Date Sequence Insurance Name Policy Number Policy Yousif Covered Member ID Yousif Member ID Guarantor Name 10/23/2019 1 [employer] [id number] Roshan Diaz [id number] Clary Diaz 09/25/2019 1 [employer] [id number] Roshan Diaz [id number] Clary Diaz Notes Date Note Type Note Provider Name and Address Organization Details Recorded Time 09/25/2019 text/html HPI Notes: Annua l Premenopausal ([facility]) Reported by patient. Patient Relationship to [...] symptoms. DR KLARISSA BOLDEN MD [address], [address], [place], [address], [facility] 09/26/2019 23:27:12 10/23/2019 text/html HPI Notes: 34 y/ o Patient here for Nexplanon removal. Was inserted 3 years ago. Does not want to resume any contraceptive method at current time. No complaints. DR KLARISSA BOLDEN MD [address], [address], [place], [address], [facility] [employer] 10/23/2019 09:43:59 OBGyn Episode No OBEpisode recorded.
== END 2023-05-25 12:13 | disposition home or self-care (01) ==
LOC: US 12:12
PROVIDERS: Visit Provider Advanced Practice Midwife
DX: O48.0 Post-term pregnancy (principal)
CPT/HCPCS: 76819

== ENCOUNTER 2023-05-28 07:16 | Outpatient (CLI) | payer OTHER, SELFPAY ==
--- NOTE | 2023-05-28 07:15 | CRLHL7_ITS ---
For Patients: As a result of the Century Cures Act, medical imaging exams and procedure reports are released immediately into your electronic medical record. You may view this report before your referring provider. If you have questions, please contact your health care provider. INDICATION: POLYHYDRAMNIOS, POST DATES TECHNIQUE: Real time oneal scale imaging of the fetus was performed. COMPARISON: 05/25/2023, 05/08/2023, 01/05/2023 FINDINGS: Sonographic imaging demonstrates a single living intrauterine gestation. Fetus demonstrates a regular cardiac rate of 139 beats per minute. Fetus has a vertex position. The placenta lies along the right side. Amniotic fluid volume appears normal and there is a single deepest pocket of 5.3 cm. The estimated weight is 4191gm. biometrics are out of range due to the late gestational age. The fetus was active and demonstrated normal breathing movements. There was normal flexion and extension of the trunk and extremities. IMPRESSION: Normal biophysical profile score 8/8. Sonographic gestational age 39 weeks 1 day. Percentile measurements are out of range due to the late gestational age. Amniotic fluid is considered normal. Single deepest pocket is 5.3 cm. Dictated by Leandro Martinez MD @ 05/28/2023 9:00:55 AM (Electronically Signed)
--- OUTSIDE RECORDS SUMMARY | 2023-05-28 07:20 | XMS_ITS | Clinical Summary ---
Author Name Unknown Organization [employer] [facility] [employer] [facility] Address [place], [place] [address] Care Team Providers Care Project Inspector Name Role Phone Pcp, No Primary Care [...] CDT Respiratory Rate 12 04/25/2017 11:27 AM AUDITOR TAX Oxygen Saturation 98% 02/09/2021 8:57 AM CDT [...] age to complete this topic Care Teams Project Inspector Relationship Specialty Start Date End Date Pcp, No . PCP - General 02/09/21
--- OUTSIDE RECORDS SUMMARY | 2023-05-28 07:20 | XMS_ITS | Data Portability ---
Author Name Unknown Address [address] [place] [address] Phone [phone] Organization [facility] [employer], autoContract - [id number] [facility] Address [address] [place] [address] Assessment No assessment recorded. Plan of Treatment Reminders Order Date Submit Date Provider Last Modified By Organization Details Last Modified Time Details Appointments None recorded. Lab urinalysis , dipstick 2019 020 In-House Results, For Internal Use Only, Do Not Delete/merge, [id number] 0 13:57:54 HPV E6+E7 mRNA, reflex to HPV 16+18+45 2019 020 [facility], [address] [place], [address], 0 18:44:29 Referral None recorded. Procedures None recorded. Surgeries None recorded. Imaging None recorded. Medication Orders None recorded. Patient TargetsNo targets recorded. Patient Instructions Encounter Date Encounter Id Patient Instructions Last Modified By Organization Details Last Modified Time 10/23/2019 [id number] Desire expectant management for now. Pt instructed to call if decide to discuss control options. Not available 10/23/2019 09:43:54 09/25/2019 [id number] healthy living, preventative services information Not available [...] For Internal Use Only, Do Not Delete/merge, [id number] 09/25/2019 10:51:31 09/25/2019 urina lysis , dipst [...] other info other inform ation Not Available [facility] [address] [place], [address], 09/29/2019 18:44:29 09/25/1909/29/2019 HPV E6+E7 mRNA, refle x to HPV 16+18 +45 cervix,thinp rep vial Not Available [facility] [address] [facility], [place], [address], 09/29/2019 18:44:29 09/25/19 20 09/29/2019 HPV E6+E7 mRNA, refle x to HPV 16+18 +45 HPV HR (high risk) result negati ve Not Available [facility] [address] [facility], [place], [address], 09/29/2019 18:44:29 Result Notes None recorded. Problems Name Status Onset Date Resolution Date Notes Provider Name and Address Organization Details Recorded Time History of abnormal cervical Papanicolaou smear Active 09/25/19 20 Camille Alejo [facility] 09/25/2019 10:57:26 History of human papilloma virus infection Active 09/25/19 [facility] 09/25/2019 10:57:36 Cigarette smoker Active 09/25/19 Camille Alejo [facility] 09/25/2019 14:59:48 Problem Notes None recorded. Procedures Surgical History Date Name Laterality Status Provider Name and Address Organization Details Recorded Time 0 Nexplanon / Implanon Removal Procedure Note ([facility]) [facility] Name and Address Organization Details Recorded Time 1547087 Medicinal product containin g penicilli n and acting as antibacte rial agent (product) medicatio n rash Not available Not available 09/25/2019 23673 05 SNOMED [facility] [...] Address Organization Details Last Updated DateTime 0 66036.9 5 g 34.9 kg/m2 167.64 cm 66 /min 122 mm[Hg] 76 mm[Hg] Camille Alejo [facility] 0 10:55:19 Date Recorded Body height Body mass index (BMI) Body weight Systolic blood pressure Diastolic blood pressure Provider Name and Address Organization Details Last Updated DateTime 10/23/2019 167.64 cm 34.9 kg/m2 53056.95 g 122 mm[Hg] 76 mm[Hg] Camille Alejo [facility] 0 09:27:49 Social History Question Answer Notes LastModified by Organizat ion Details LastModified Time Tobacco Smoking Status Current Every Day [facility] 09/25/2019 14:59:57 What Is Your Level Of Alcohol Consumption? Occasional [email or web address] Information not available 09/25/2019 Is Blood Transfusion Acceptable In An Emergency? Yes [email or web address] Information not available 09/25/2019 What Is Your Level Of Caffeine Consumption? Moderate kvojoqips51 Information not available 09/25/2019 How Much Tobacco Do You Chew? None [email or web address] Information not available 09/25/2019 What Type Of Diet Are You Following? REGULAR [email or web address] Information not available 09/25/2019 Do You Or Have You Ever Used E-cigarettes Or Vape? Never Used Electronic Cigarettes [email or web address] Information not available 09/25/2019 Education Post Graduate [email or web address] Informatio n not available 09/25/2019 What Is Your Occupation? Teacher [email or web address] Information not available 09/25/2019 How Many Days In The Past Year Have You Had A Heavy Drinking Consumption (4+ Female, 5+ Male)? 0 [email or web address] Information not available 09/25/2019 Illicit Drugs? No Informati on not available 09/25/2019 History Of Domestic Violence No [email or web address] Information not available 09/25/2019 Marital Status [email or web address] Informati on not available 09/25/2019 Seat Belts Used Routinely Yes Information not available 09/25/2019 Do You Or Have You Ever Used Smokeless Tobacco? Never Used Smokeless Tobacco ukldascrq47 Information not available 09/25/2019 How Much Tobacco Do You Smoke? 0.25 PPD Information not available 09/25/2019 On What Date Was Tobacco Cessation Counseling Provided? 09/25/2019 [email or web address] Information not available 09/25/2019 How Many Years Have You Smoked Tobacco? 10 [email or web address] Information not available 09/25/2019 Do You Have Symptoms Associated With Zika Virus (fever, Rash, Joint Pain, Or Conjunctivitis)? No [email or web address] Information not available 09/25/2019 Have You Recently (within The Last 12 Weeks, Or During A Current ) Traveled To Or Lived In A Zika-affected Area? No [email or web address] Information not available 09/25/2019 Sex: Female Functional Status Question Answer Note LastModified by Organizat ion Details LastModified Time Urinary incontinence assessment performed? Yes [email or web address] Information not available 09/25/2019 What is your exercise level? Occasional yuodqsgbh62 Information not available 09/25/2019 Mental Status None [...] Encounter Start Date Encounter Closed Date Diagnosis/Indication [id number] DR KLARISSA BOLDEN MD [id number] R [address] [place] [address] 09/25/2019 10:03:24 09/25/2019 11:37:28 Gynecologic examination Increased body mass index History of human papilloma virus infection Cigarette smoker [id number] DR KLARISSA BOLDEN MD [id number] R [address] [place] [address] 10/23/2019 09:03:02 10/23/2019 09:48:58 Removal of subcutaneous contraceptive Health Concerns Section Related Observation LastModified by Organization Detai ls LastModified Time None Recorded Concern Status LastModified by Organization Details LastModified Time None Recorded Advance Directives Directive None Recorded Payers Encounter Date Sequence Insurance Name Policy Number Policy Yousif Covered Member ID Yousif Member ID Guarantor Name 10/23/2019 1 [employer] [id number] Roshan Diaz [id number] Clary Daiz 09/25/2019 1 [employer] [id number] Roshan Diaz [id number] Clary Diaz Notes Date Note Type Note Provider Name and Address Organization Details Recorded Time 09/25/2019 text/html HPI Notes: Annua l Premenopausal ([facility]) Reported by patient. Patient Relationship to Practice: [...] symptoms. DR KLARISSA BOLDEN MD [address], [address], [place], [address], [facility] 09/26/2019 23:27:12 10/23/2019 text/html HPI Notes: 34 y/ o Patient here for Nexplanon removal. Was inserted 3 years ago. Does not want to resume any contraceptive method at current time. No complaints. DR KLARISSA BOLDEN MD [address], [address], [place], [address], [facility] [employer] 10/23/2019 09:43:59 OBGyn Episode No OBEpisode recorded.
== END 2023-05-28 07:17 | disposition home or self-care (01) ==
LOC: US 07:18
PROVIDERS: Visit Provider Advanced Practice Midwife
DX: O40.3XX0 Polyhydramnios, third trimester, not applicable or unspecified (principal); Z3A.41 41 weeks gestation of pregnancy
CPT/HCPCS: 76816; 76819

== ENCOUNTER 2023-05-28 08:36 | Inpatient (IN) | payer OTHER, SELFPAY ==
[2023-05-28] VITALS (77 sets, daily range): BP systolic 84–130; BP diastolic 49–85; PULSE 57–156; RESP 12–98; TEMP 36.4–37; O2SAT 82–100; BMI 35.0
--- OUTSIDE RECORDS SUMMARY | 2023-05-28 08:39 | XMS_ITS | Clinical Summary ---
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 PCP - General 02/09/21
--- NOTE | 2023-05-28 09:09 | P.LDBA_ITS ---
Subjective History of Present Illness Date Seen: 05/28/23 Narrative: Patient is being admitted to Labor and Delivery for induction of labor for postdates. She is a 38 year old at 41.3 weeks gestation. Her full history and physical was dictated by Seun Mejia CNM on 04/26/23. Please see this for details. Specific Issues/Plans G 2 P 1001 H&P by Seun Mejia CNM on 04/26/23 1. BMI 36.7. Recommended 11-20lb weight gain. Hemoglobin A1C: 5.1 Recommend daily baby aspirin starting at 12 weeks to reduce risk of preeclampsia. Declines. Recommend weekly NST and/or BPP starting at 37 weeks As of 05/15/23, pt weight is down 10 lbs from prepregnancy OB weight 2. Advanced Maternal Age Genetic Screening: desires MaterniT 21. Level 2 Ultrasound-declines 3. Rh negative Rhogam at 28 weeks: received Rhogam PP: 4. Anemia. Hgb 10.4 at 28 wks. 34 weeks: 10.6 - iron BID qod 5. Mild Polyhydramnios SDP at 41.0 weeks 8.0, no RAEANN done recommended IOL, pt declines returning for repeat US for RAEANN at 41.3 COVID: Not vaccinated. Recommended. Tdap: 03/09/2023 RSV: 04/03/23 OB - Problem Based A/P Additional Plan (1) Post-dates : Status: Acute (2) Encounter for induction of labor: Status: Acute (3) Polyhydramnios affecting in third trimester: Problem details: SDP 8.0 at 41wks SDP 5.3 at 41.3 Status: Acute (4) AMA (advanced maternal age) multigravida 35+: Status: Acute (5) Type A blood, Rh negative: Status: Acute Plan Assessment:?? at 41.3 weeks gestation?? GBS negative??? Labor type: Induced, not in labor? Category 1 FHR pattern.? complicated by: BMI >35, AMA >35, Rh negative- received Rhogam at 28 weeks, Anemia- taking iron BID QOD, Mild Polyhydramnios based on one SDP of 8.0- today's reading WNL at 5.3 Plan:?? * ?Admit to L & D? * IV access: per protocol for induction of labor * Monitoring per policy: continuous * Candidate for analgesia of choice.? Planning to remain open to all methods for pain management * Reviewed risks and benefits of IOL with Cook balloon, Pitocin vs Cytotec/Cervidil. Given her advance dilation of last week, Pt prefers Pitocin. * Patient encouraged to reposition and ambulate to promote physiologic labor and . * Anticipate ? Delivery/Labor/Induction Plan Plan: induction Induction method: per pitocin protocol OB Exam Physical Exam Vital signs: Pulse BP Pulse Ox 66 109/66 84 L 05/28/23 09:04 05/28/23 09:04 05/28/23 09:05 Narrative: Vitals Reviewed Constitutional:? Alert and oriented x3 HEENT:? Normocephalic, atraumatic Neck:? Supple Lungs:? Clear to auscultation bilaterally Heart:? Regular rate and rhythm, no murmur, rub or gallop Abdomen:? Soft, nontender, and gravid. Vertex by Hua's, confirmed with cervical exam. Extremities:? No edema or erythema Cervix: 3 cm/50%/-3 station/vertex by today's US NST: 135 bpm/moderate variability/+accelerations/-decelerations/mild contractions Detailed Labor and Delivery Exam Patient Gravid: Yes
[2023-05-28] MEDS: LACTATED RINGERS 1000 ML 1,000 ML 125 ML IV ×2 (10:20→19:31)
[2023-05-28] MEDS: OXYTOCIN 30 unit/500 ML in NS 30 UNIT/500 ML BAG IVPB (10:21)
--- NOTE | 2023-05-28 14:22 | PM.OBPNL ---
Subjective Date Seen: 05/28/23 Narrative: ?Clary is coping well with labor pain/contractions, she does appear fatigued and requested a cervical exam to assess progress. After that exam she is requesting an epidural. ?Her partner is with her for support. ? Objective Exam: VSS, afebrile General Appearance:? Calm, cooperative. ?No acute distress. ? Psychiatric Exam: Alert and oriented, appropriate affect Abdomen: Gravid Ctx: ?Q 2-3 min apart. ? ?Moderate ? FHTs: ?Baseline: 140. ? ? Variability: moderate. ?Accels: +. ? ?Decels: ?-. SVE: /-2 Membranes: Intact ? Vital Signs: Last Vital Signs Temp 97.8 F 05/28/23 13:19 Pulse 75 05/28/23 13:20 Resp 16 05/28/23 13:19 BP 114/62 05/28/23 13:20 Pulse Ox 84 L 05/28/23 09:05 Plan Plan: Assessment:?? at 41.3 gestation?? GBS neg Patient is coping with challenges of labor.?? Labor type: Induced, Early labor? Category 1 FHR pattern.? complicated by: BMI >35, AMA >35, Rh negative- received Rhogam at 28 weeks, Anemia- taking iron BID QOD, Mild Polyhydramnios based on one SDP of 8.0- today's reading WNL at 5.3 Labor complicated by: NA? Plan:?? Epidural placement by anesthesia for pain management Continue with IV Pitocin per protocol Continue with routine intrapartum cares as ordered.?? Patient encouraged to move and change positions to promote physiologic labor and .?? Nonpharmacologic comfort measures per patient preference. Candidate for analgesia of choice if desired. Anticipate progress to NVD. ?
[2023-05-28] MEDS: ROPIVACAINE 0.2% 100 ml 100 ML 12 MG EPIDURAL (14:48)
[2023-05-28] MEDS: PHENYLEPHRINE 100 MCG/ML SYRINGE IVP ×3 (14:57→15:15)
--- NOTE | 2023-05-28 15:00 | PM.ANBPRC ---
[facility] Medical History (Updated 05/28/23 @ 09:25 by Aline Wise CNM) History of abnormal cervical Pap smear ?Z87.42 - Personal history of other diseases of the female genital tract (ICD-10) Normal spontaneous vaginal delivery ?O80 - Encounter for full-term uncomplicated delivery (ICD-10) Surgical History (Updated 04/26/23 @ 15:37 by Vidya Mejia CNM) Status post LASIK surgery of both eyes ?Z98.890 - Other specified postprocedural states (ICD-10) H/O removal of cyst ?Z98.890 - Other specified postprocedural states (ICD-10) History of tonsillectomy ?Z90.89 - Acquired absence of other organs (ICD-10) H/O plastic surgery ?Z98.890 - Other specified postprocedural states (ICD-10) Family History Mother Thyroid disease Maternal Grandmother Lymphoma Paternal Grandmother Lymphoma Grandfather Coronary artery disease High blood pressure 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 What is your current living situation?: I presently have a place to live Problems where you live: no known problems In the past 12 months, utilities in danger of being shut off: no In past 12 months, lack of transportation kept you from medical appts, meetings, work, or getting things needed for daily living: no In the past 12 mos, have been you worried that your food would run out before you had money to buy more?: never true In the past 12 mos, the food you bought just didn't last and you didn't have money to buy more?: never true Smoking Status: Former smoker How often do you have a drink containing alcohol: never AUDIT-C Alcohol total score: 0 Non-prescribed substance use: denies use How often does anyone, including family, friends and others, physically hurt you: never How often does anyone, including family, friends and others, insult or talk down to you: never How often does anyone, including family, friends and others, threaten you with harm: never How often does anyone, including family, friends and others, scream or curse at you: never Little interest or pleasure in doing things: not at all Feeling down, depressed, or hopeless: not at all Meds Home Medications and Allergies Home Medications Medication Instructions Recorded Confirmed Type docosahexaenoic acid 200 mg 200 mg PO .once daily 10/10/22 05/28/23 History capsule ( DHA) ferrous sulfate 325 mg (65 mg 325 mg PO QDAY 03/09/23 05/28/23 History iron) tablet docusate sodium 100 mg capsule 100 mg PO QDAY 05/28/23 05/28/23 History (Colace) Allergies Allergy/AdvReac Type Severity Reaction Status Date / Time Penicillins Allergy Mild Verified 05/28/23 07:58 Results Vital Signs Vital Signs: Last Vital Signs Temp 97.7 F 05/28/23 14:55 Pulse 70 05/28/23 14:57 Resp 16 05/28/23 14:55 BP 87/49 L 05/28/23 14:57 Pulse Ox 100 05/28/23 14:42 Weight: 98.43 kg Height: 167.64 cm Anesthesia Procedures Epidural Insertion Patient Location: OB Start Time: 14:15 Stop Time: 15:00 Start Date: 05/28/23 Stop Date: 05/28/23 Reason for Block: procedure for pain Patient Position: sitting Performed By: Marleny Orellana Preanesthetic Checklist: IV checked, risks and benefits discussed, monitors and equipment checked, timeout performed and anesthesia consent Prep: chlorhexidine gluconate Monitoring: blood pressure monitoring, continuous pulse oximetry and heart rate Approach: midline Vertebral Space: lumbar (1-5) Epidural Technique: MARIALUISA saline Needle Type: Tuohy needle Injection Technique: continuous catheter Needle gauge: 17 Needle Length (cm): 10 cm Needle Insertion Depth (cm): 7 Catheter Gauge: 19 Catheter Type: multi-orifice Catheter at skin depth (cm): 14 Test Dose Result: negative and lidocaine 1.5% with epinephrine 1 to 200,000
[2023-05-28] MEDS: LACTATED RINGERS 1000 ML 1,000 ML 525 ML IV (15:05)
[2023-05-28] MEDS: ePHEDrine sulfate 5 MG/ML inj 10 MG IVP ×2 (15:29→16:19)
--- NOTE | 2023-05-28 17:59 | P.OBPN_ITS ---
Subjective Date Seen: 05/28/23 Narrative: ?Clary is coping well with labor pain/contractions. ?Her is with her for support. ?She would like to continue with her epidural for comfort and pain management. A cervical exam was performed and patient has made change to /- 2. Discussed R/B/A with patient for AROM, she agreed with a plan for AROM which was done for clear fluid. Small amount of brown old blood flecks noted at time of AROM. ? Objective Exam: General Appearance:? Calm, cooperative. ?No acute distress. ? Psychiatric Exam: Alert and oriented, appropriate affect Abdomen: Gravid Ctx: ?Q 2-3 min apart. ? ? ?Strong FHTs: ?Baseline: 150. ? ? Variability: moderate. ?Accels: +. ? ?Decels: ?occasional late variables. SVE: /-2 Membranes: ?AROM clear fluid Vital Signs: Last Vital Signs Temp 97.7 F 05/28/23 16:08 Pulse 82 05/28/23 17:35 Resp 16 05/28/23 16:08 BP 103/66 05/28/23 17:35 Pulse Ox 100 05/28/23 14:42 Assessment Assessment: induction ongoing Station: -2 Amniotic Membrane Status: AROM Status: Category ll Plan Plan: Assessment:?? at 41.3 gestation?? GBS neg Patient is coping well with challenges of labor.?? Labor type: Induced, Early labor? Category 2 FHR pattern.? complicated by: BMI >35, AMA >35, Rh negative- received Rhogam at 28 weeks, Anemia- taking iron BID QOD, Mild Polyhydramnios based on one SDP of 8.0- today's reading WNL at 5.3 Labor complicated by: Postdates? Plan:?? Continue with IV Pitocin per protocol AROM for clear fluid, consider IUPC if no change with next exam. Continue with routine intrapartum cares as ordered.?? Patient encouraged to move and change positions to promote physiologic labor and .?? Nonpharmacologic comfort measures per patient preference. Candidate for analgesia of choice if desired. Anticipate progress to NVD. ?
--- NOTE | 2023-05-28 20:42 | PM.OBPNL ---
Subjective Date Seen: 05/28/23 Narrative: ?Clary is coping well with labor pain/contractions. ?Roshan is with her for support. ?She would like to continue with her epidural for comfort and pain management.? She had a prolonged deceleration around 1939 which resolved with position change to hands and knees, IV fluid bolus and turning off the pitocin. Since that time she has had deep variables with contractions and one additional prolonged deceleration resolved with position change to right lateral. Dr. Woodall consulted and no change of plan at this time. Plan to reevaluate in approximately one hour and make a plan based on that exam. Objective Exam: VSS, afebrile General Appearance:? Calm, cooperative. ?No acute distress. ? Psychiatric Exam: Alert and oriented, appropriate affect Abdomen: Gravid Ctx: ?Q 2-3 min apart. ? ? ?Strong FHTs: ?Baseline: 150. ? ? Variability: moderate. ?Accels: -. ? ?Decels: ?variables with contractions. Membranes: ?AROM clear fluid Vital Signs: Last Vital Signs Temp 98.2 F 05/28/23 19:18 Pulse 88 05/28/23 20:16 Resp 16 05/28/23 19:18 BP 113/73 05/28/23 20:16 Pulse Ox 100 05/28/23 20:41 Assessment Station: -2 Amniotic Membrane Status: AROM Status: Category ll Plan Plan: Assessment:?? at 41.3 gestation?? GBS neg Patient is coping well with challenges of labor.?? Labor type: Induced, Active labor? Category 2 FHR pattern.? complicated by: BMI >35, AMA >35, Rh negative- received Rhogam at 28 weeks, Anemia- taking iron BID QOD, Mild Polyhydramnios based on one SDP of 8.0- today's reading WNL at 5.3 Labor complicated by: Postdates induction and Category II strip? Plan:?? Reevaluate in approximately 30 minute Continue with routine intrapartum cares as ordered.?? Patient encouraged to move and change positions to promote physiologic labor and .?? Nonpharmacologic comfort measures per patient preference. Candidate for analgesia of choice if desired. Anticipate progress to NVD. ?
[2023-05-28] MEDS: AZITHROMYCIN 500 MG in 0.9 % SODIUM CHLORIDE 250 ml 250 ML 255 MG IVPB (21:18)
--- NOTE | 2023-05-28 21:21 | PM.OBCN1 ---
OB - CN: HPI Date of Consult Time Seen by Provider: 21:21 Date Seen: 05/28/23 Consult date: 05/28/23 Requesting Physician: Aline Wise CNM Primary Care Provider: Not a Local Provider Consult Narrative Narrative: The patient is a 38 year old G 2 P 1001 at 41 weeks 3 days gestation that was admitted to the Center on 05/28/23 for induction of labor due to post-term. I was consulted due to continued nonreassuring heart tracking unable to continue titrating Pitocin. Unfortunately, throughout her induction of labor, Clary had late/variable/prolonged decelerations that would initially respond to resuscitation but would recur. Throughout all this, she had made great cervical change and is currently at 7 cm/75%/0 station. Despite cervical change, station remained high and moderate amount of caput is noted on my exam. Per TEJA Mireles, her station remained unchanged since the start of induction. heart rate tracing: Baseline 150 beats per minute, moderate variability, no deceleration, variable decelerations with almost every contraction. Variable decelerations are getting increasingly deeper, down to the the 70s. She is currently on no Pitocin. Discussed with patient that size is most likely the issue with her labor progress. Additionally, fetus feels OB. size might also be inhibiting rotation to OA. She had a growth scan today which showed EFW of 4191 g. Her last baby was 6 lb 12 oz. At this point, I recommend a delivery due to progressively worsening heart rate tracing and inability to titrate Pitocin. Her contractions are inadequate without pitocin. CS Consent The patient was consented for section and blood. She understands that the four main categories of risk include pain, bleeding, infection, and damage to surrounding structures. Regarding infection, she understands that we will be delivering appropriate antibiotics, however that the risk of infection following section still is approximately 5%. She understands that though the risk is very low that there is always a risk of damage to the bladder, uterus, ovaries, fallopian tubes, bowels, ureters, or even the fetus. She understands that most injuries can be addressed at the time of surgery, however, such an injury may require additional surgeries to fix. Lastly, she understands that a section carries a risk of bleeding, and that while this bleeding can be addressed with multiple medical and surgical modalities (including hysterectomy), that there is the possibility of needing a blood transfusion. She reports she would accept a blood transfusion understanding the risks of a 1/200,000 risk of Hepatitis and 1/2,000,000 risk of HIV as well as the risk of having an allergic reaction to the blood products. She further understands that this reaction is typically mild, however can be severe including respiratory distress and necessitating ICU-level care. Lastly, she understands that a section does increase risks for future pregnancies and deliveries including, but not limited to, the risk of uterine rupture or placenta accreta. After counseling, patient desires delivery via section. Consent form signed. All questions answered to patient's satisfaction. History History 2 Elective abortions Para 2 Spontaneous abortions Hx # Term Pregnancies 1 Ectopic pregnancies Hx # Pregnancies Multiple births Number of Living Children 1 Past Pregnancies Del. Date GA/Weeks Outcome Route wt Inf Gender Labor Lgth Anesthesia Location Provider Compli 02/10/21 41 live - full term 6 lb 12 oz Female 10-12 hours; pushed 5 times none Suppes Labs GBS status: negative OB Labs: Lab Assessment Start: 05/28/23 08:38 Freq: ONCE Status: Active Protocol: PC.OBGBS Activity Type Activity Date Activity User E-sign Co-sign Detail Recorded Client Recorded Date Recorded By Document 05/28/23 09:38 SASCHA [id number] 05/28/23 09:38 SASCHA 05/28/23 09:38 Lab Assessment GBS Status negative GBS Additional Criteria None No Treatment Needed OK Are Labs Available Yes Maternal Blood Type A Maternal RH Factor Negative Evaluate Maternal Rubella Immune Status Immune Hepatitis B Surface Antigen Negative Maternal HIV Status Negative Maternal Syphillis (RPR) Status Negative [facility] Medical History (Updated 05/28/23 @ 09:25 by Aline Wise CNM) History of abnormal cervical Pap smear ?Z87.42 - Personal history of other diseases of the female genital tract (ICD-10) Normal spontaneous vaginal delivery ?O80 - Encounter for full-term uncomplicated delivery (ICD-10) Surgical History (Updated 04/26/23 @ 15:37 by Vidya Mejia CNM) Status post LASIK surgery of both eyes ?Z98.890 - Other specified postprocedural states (ICD-10) H/O removal of cyst ?Z98.890 - Other specified postprocedural states (ICD-10) History of tonsillectomy ?Z90.89 - Acquired absence of other organs (ICD-10) H/O plastic surgery ?Z98.890 - Other specified postprocedural states (ICD-10) Family History Mother Thyroid disease Maternal Grandmother Lymphoma Paternal Grandmother Lymphoma Grandfather Coronary artery disease High blood pressure 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 What is your current living situation?: I presently have a place to live Problems where you live: no known problems In the past 12 months, utilities in danger of being shut off: no In past 12 months, lack of transportation kept you from medical appts, meetings, work, or getting things needed for daily living: no In the past 12 mos, have been you worried that your food would run out before you had money to buy more?: never true In the past 12 mos, the food you bought just didn't last and you didn't have money to buy more?: never true Smoking Status: Former smoker How often do you have a drink containing alcohol: never AUDIT-C Alcohol total score: 0 Non-prescribed substance use: denies use How often does anyone, including family, friends and others, physically hurt you: never How often does anyone, including family, friends and others, insult or talk down to you: never How often does anyone, including family, friends and others, threaten you with harm: never How often does anyone, including family, friends and others, scream or curse at you: never Little interest or pleasure in doing things: not at all Feeling down, depressed, or hopeless: not at all Meds Home Medications and Allergies Home Medications Medication Instructions Recorded Confirmed Type docosahexaenoic acid 200 mg 200 mg PO .once daily 10/10/22 05/28/23 History capsule ( DHA) ferrous sulfate 325 mg (65 mg 325 mg PO QDAY 03/09/23 05/28/23 History iron) tablet docusate sodium 100 mg capsule 100 mg PO QDAY 05/28/23 05/28/23 History (Colace) Allergies Allergy/AdvReac Type Severity Reaction Status Date / Time Penicillins Allergy Mild Verified 05/28/23 07:58 OB - H&P: Exam Physical Exam: Vital signs: Temp Pulse Resp BP Pulse Ox 98.2 F 88 16 113/73 100 05/28/23 19:18 05/28/23 20:16 05/28/23 19:18 05/28/23 20:16 05/28/23 21:16 OB - CN: A/P Assessment and Plan (1) Post-dates : Status: Acute (2) Encounter for induction of labor: Status: Acute (3) Polyhydramnios affecting in third trimester: Problem details: SDP 8.0 at 41wks SDP 5.3 at 41.3 Status: Acute (4) AMA (advanced maternal age) multigravida 35+: Status: Acute (5) Type A blood, Rh negative: Status: Acute
[2023-05-28 21:31] LABS: Hemoglobin* 11.2 gm/dL (12.0-16.0)
--- NOTE | 2023-05-28 22:56 | P.OBPRC_ITS ---
Procedure Time Seen by Provider: 23:00 Date of procedure: 05/28/23 Procedure Done: Global Will [facility] bill your pro fee for this procedure?: Yes Procedure Description: DELIVERY BY SECTION Date of Service: May 28 2023 Delivery time: 05/12/2054 Summary: Admitted for induction of labor at 41.3 weeks, Primary Lower uterine transverse section, Pfannenstiel, Closed with sutures, QBL 979 cc, Complications: 3 cm extension of the right hysterotomy angle inferiorly and uterine atony, Findings: Normal uterus, bilateral ovaries and right tubes. Two 1 cm paratubal cysts on left tube. 8/9, weight 4095 g. Primary Indication: 1. Nonreassuring heart tracing remote from delivery/unable to titrate Pitocin Procedures: Primary Lower uterine transverse section Specimens Removed: Placenta Surgeon: Cyndi Woodall MD Anesthesia: epidural and TAP Report: Prophylactic antibiotic, 2 g of Ancef and 500 mg of azithromycin was given before patient was taken to OR. After arrival to the operating room patient was placed in the supine position with left lateral tilt after redosing of epidural. Laparotomy A pfannenstiel incision was made through the anterior abdominal wall with #10 scalpel approximately 2 cm above the pubic symphysis. The incision was extended sharply with the #10 scalpel through the subcutaneous tissue to the level of fascia. The fascia was entered sharply with a #10 scalpel (Pfannenstiel) in the midline and extended in semi-elliptical fashion bluntly with digits. The rectus muscles were in the midline bluntly with digits. The peritoneum was then entered bluntly. The peritoneal incision was then extended superiorly and inferiorly under direct visualization with care being taken to avoid bladder and bowel. No adhesions were noted. The peritoneal incision was enlarged bluntly by lateral traction from the surgeon's and assistant manager quality management's hand. Lauri retractor was inserted into the abdomen. Delivery A bladder flap was developed by grasping with Jordanian forcep and enter with Metzenbaun scissor. Then sharp and blunt dissection with Metzenbaum scissor and fingers were performed. Bladder flap performed as head felt low on the lower uterine segment. A low transverse hysterotomy was made then with #10 scalpel and extended laterally and cephalad with fingers in a low transverse fashion with Manu Wilks technique with care being taken to avoid injury to the fetus. The amniotic cavity (membrane) was then entered with spontaneous rupture of membrane, and the amniotic fluid was noted to be clear, fetus was delivered cephalic. With delivery of the baby, 3 cm right inferior extension was noted. Placenta was delivered spontaneously with steady traction on cord and manual separation of placenta from uterine wall. All hysterotomy angle were clamped with ring forceps. Closure Uterine cavity was cleaned after placental delivery with lap sponge x 2. The hysterotomy was closed in two layer with stitches using 0 vicryl with continuous locking stitches and 0 monocryl in continuous nonlocking imbricating layer. An additional 3 [id number] were placed at the left uterine angle. Hemostasis was achieved as needed with electrocautery. Bhavik applied to the bladder flap and hysterotomy. The ovaries/tubes/uterine surface were evaluated. They were found to be as stated above. Lauri retractor removed and hemostasis was confirmed again. Fascia was closed with running stitches using 0 Vicryl. Subcutaneous layer was irrigated. Hemostasis was checked for and found to be adequate. The subcutaneous layer was closed with running 2-0 Vicryl sutures. The skin was closed with 4-0 Vicryl subcuticular sutures . The incision was cleaned, Exofin applied, and Mepilex dressing applied. The procedure considered terminate at this time. Intraoperative Complications: 3 cm extension of the right hysterotomy angle inferiorly and uterine atony QBL: 979 cc Uterotonics: 40u of Pitocin, Methergine x1, 1 g TXA x2. Disposition: The patient tolerated the procedure well. She was recovered in Obstetric PACU for close monitoring in stable condition, with a contracted uterus and normal transvaginal bleeding. The infant was sent to mother?s bedside. The placenta was sent to pathology due to nonreassuring heart tracing and on schedule delivery. Debrief with OR team performed and specimen reviewed at the conclusion of the procedure. total score - 1 minute: 8 total score - 5 minute: 9
--- NOTE | 2023-05-28 23:07 | W.ANESCHARGE ---
Anesthesia Charges Start Date/Time Anesthesia Start Date: 05/28/23 Anesthesia Start Time: 21:36 Stop Date/Time Anesthesia Stop Date: 05/28/23 Anesthesia Stop Time: 23:07 Summary Emergency: OPERATIONS STAFF SPECIALIST SECURITY
--- NOTE | 2023-05-28 23:08 | P.NB_ITS ---
Nerve Block Nerve Block Time Seen by Provider: 23:00 Date Seen: 05/28/23 Type of block requested by surgeon for post-operative analgesia: TAP Side: bilateral Time out performed: Yes Verification of patient name: Yes Verification of date of : Yes Site marking: site marked Name of person performing procedure: vicki cavazos Continuous monitoring Was continuous monitoring of O2 sat, B/P, plant technician/control room operator, recorded every 15 minutes?: Yes Procedure Checklist: sterile prep, needles and gloves Ultrasound guided. Images saved: Yes Medications given in 5ml increments after negative aspiration: Marcaine %: 0.25 mL: 30 and Exparel mL: 10 Patient tolerated procedure well: Yes Block Charges Block Charge (with Pro Fee): TAP Bilateral Use of Ultrasound Machine for Block: Yes- US Guidance/pain block
[2023-05-29] VITALS (33 sets, daily range): BP systolic 87–141; BP diastolic 54–89; PULSE 62–93; RESP 12–18; TEMP 36.7–36.9; O2SAT 95–98
[2023-05-29] MEDS: diphenhydrAMINE 50 MG/ML inj 12.5 MG IVP (03:16)
[2023-05-29] MEDS: KETOROLAC 30 MG/ML inj IVP ×4 (04:15→21:59)
--- NOTE | 2023-05-29 07:49 | P.OBPN_ITS ---
OB - PN:Subj Subjective Date Seen: 05/29/23 Patient comments OB post-: no complaints, pain well controlled, tolerating diet and flatus present Winona status: and doing well Winona feeding status: exclusively Narrative: The patient feels well.? The pain is well controlled with current medications.? She has no new complaints.? Urinary output is adequate and she is voiding w ithout difficulty.? Has a good appetite, is tolerating a general diet, is passing flatus, and has not had a bowel movement.? Has small amount of rubra lochia.? She is ambulating well.?She is and so far it is going ok. She was not successful with her first child so she is nervous about how this time will go and uncertain if she will continue. Encouraged her to ask for help to ensure a good latch. Hgb 10.0. Denies feeling lightheaded, dizzy or weak. She was on PO iron EOD in and would like to continue it PP. OB - PN: Obj Exam Physical Exam: Vital signs: Temp Pulse Resp BP Pulse Ox O2 Del Method 98.2 F 65 12 118/75 95 Room Air 05/29/23 03:24 05/29/23 03:24 05/29/23 06:09 05/29/23 03:24 05/29/23 03:24 05/29/23 03:24 Narrative: GENERAL APPEARANCE:? normal affect, alert, no distress? MOOD:? appropriate? CHEST:? clear to auscultation and percussion? HEART:? regular rate and rhythm? ABDOMEN:? soft, non-tender the uterine fundus is U/2 and is appropriate for the stage of recovery.?Dressing clean dry and intact. EXTREMITIES:? normal and no edema? Urinary Catheter Management: Urethral: Cath placed during this visit: yes, but has since been removed by the nurse Reason for continuing: surgical procedure Insertion date: 05/28/23 Insertion time: 12:00 Removal date: 05/29/23 Removal time: 03:30 OB - PN: Obj Data Labs Labs: Laboratory Results - last 24 hr 05/28/23 05/29/23 21:16 06:25 Hgb 11.2 L 10.0 L Blood Type A Negative Antibody Screen NEGATIVE OB - PN: A/P Delivery Assessment and Plan (1) AMA (advanced maternal age) multigravida 35+: Status: Acute (2) Type A blood, Rh negative: Status: Acute (3) Lactating mother: Status: Acute (4) care following delivery: Status: Acute Plan day: 1 Plan: routine care Comments: Anticipate discharge tomorrow or the following day per patient preference.
[2023-05-29] MEDS: diphenhydrAMINE 25 MG CAPSULE PO (10:35)
[2023-05-29] MEDS: DOCUSATE SODIUM 100 MG CAPSULE PO (16:41)
[2023-05-29] MEDS: SODIUM CHLORIDE 0.9 % (FLUSH) 10 ML SYRINGE IVF (16:42)
[2023-05-30] MEDS: IBUPROFEN 600 MG TABLET PO ×2 (04:55→11:04)
[2023-05-30 07:58] VITALS: BP 95/60; PULSE 81; RESP 16; TEMP 36.6
[2023-05-30] MEDS: ACETAMINOPHEN 500 MG TABLET 1000 MG PO (08:10)
[2023-05-30] MEDS: DOCUSATE SODIUM 100 MG CAPSULE PO (08:14)
[2023-05-30] MEDS: MAGNESIUM HYDROXIDE 30 ML ORAL.SUSP PO (08:14)
--- NOTE | 2023-05-30 08:25 | P.DS_ITS ---
DS: Providers Provider Date Seen: 05/30/23 Date of admission: 05/28/23 08:36 Primary care physician: Not a Local Provider Admitting Clinician: Aline Wise CNM Consults: 05/28/23 21:18 Consult to Physician [CONS] Routine Comment: Consulting Provider: Cyndi Woodall Has provider been notified: Yes Attending Physician on discharge: Latisha Downs CNM DS: Diagnosis Discharge Diagnosis (1) care and examination immediately after delivery: Status: Acute (2) Status post section: Status: Acute (3) Elevated BP without diagnosis of hypertension: Status: Acute Exam Narrative: Exam Narrative: GENERAL APPEARANCE:? normal affect, alert, no distress MOOD:? appropriate CHEST:? clear to auscultation HEART:? regular rate and rhythm ABDOMEN:? soft, non-tender the uterine fundus is At Umbilicus, Midline and is appropriate for the stage of recovery. EXTREMITIES:? normal and no edema INCISION: Healing well, no surrounding erythema, abnormal induration or discharge Const: Vital Signs, click to edit/add: Vital Signs - 24 hr 05/29/23 08:27 05/29/23 09:09 05/29/23 10:09 Temperature 98.1 F Pulse Rate [Pulse Oximeter] 67 Respiratory Rate 16 16 16 Blood Pressure [Ri ght Arm] 97/67 Pulse Oximetry 96 Oxygen Delivery Me thod Room Air 05/29/23 11:09 05/29/23 12:09 05/29/23 12:22 Temperature 98.0 F Pulse Rate [Pulse Oximeter] 65 Respiratory Rate 16 16 16 Blood Pressure [Ri ght Arm] 101/65 Pulse Oximetry 95 Oxygen Delivery Me thod Room Air 05/29/23 13:09 05/29/23 14:09 05/29/23 15:09 Temperature Pulse Rate [Pulse Oximeter] Respiratory Rate 16 16 16 Blood Pressure [Ri ght Arm] Pulse Oximetry Oxygen Delivery Me thod 05/29/23 16:09 05/29/23 16:14 05/29/23 17:09 Temperature 98.4 F Pulse Rate [Pulse Oximeter] 67 Respiratory Rate 16 16 16 Blood Pressure [Ri ght Arm] 91/54 L Pulse Oximetry 96 Oxygen Delivery Me thod Room Air 05/29/23 19:09 05/29/23 20:09 05/29/23 20:39 Temperature 98.2 F Pulse Rate [Pulse Oximeter] 67 Respiratory Rate 16 16 18 Blood Pressure [Ri ght Arm] 109/65 Pulse Oximetry 98 Oxygen Delivery Me thod Room Air 05/29/23 21:09 05/29/23 23:40 05/30/23 07:58 Temperature 98.1 F 97.8 F Pulse Rate [Pulse Oximeter] 81 81 Respiratory Rate 18 18 16 Blood Pressure [Ri ght Arm] 87/57 L 95/60 Pulse Oximetry 96 Oxygen Delivery Me thod Room Air OB - DS: Summary Hospital Course Hospital Course: Judy is a 38 y.o. G 2 P 2 who was admitted to [facility] for induction of labor for post-dates. ?She had a NVD that was uncomplicated. The patient feels well. ?The pain is well controlled with current medications. ?She has no new complaints. ?She is b formula feeding. the patient has done well.? Vitals have been stable.? She has remained afebrile.? Has a good appetite, is tolerating a general diet. ?She is voiding without difficulty.? She is passing gas and has not had a bowel movement.? She is ambulating and denies any dizziness.? Has small amount of rubra lochia. Problems: Elevated BP without diagnosis of HTN, one elevated BP since delivery. Low normotensive blood pressures since. plan: Discharge home with baby. Follow up in 2 weeks and 6 weeks. Hgb pending. Iron supplement ordered orally every other day Elevated BP without diagnosis of HTN Peripartum Data Procedures: Procedures Operation Date: 05/28/23 22:00 Actual Procedure Side Surgeon p Primary Section Cyndi Woodall MD [place] Gender: Male Time Spent with Patient Time attestation: Total time spent providing and/or coordinating discharge services: Discharge Plan Discharge Disposition: Home, Self-Care Date of Admission: 05/28/23 08:36 Attending Provider on Discharge: Latisha Downs Consulting Providers: Cyndi Woodall Primary Care Provider: Provider,Not a Local Condition: Stable Anticipated Discharge Date/Time: 05/30/23 12:00 Discharge Medications: New acetaminophen 500 mg Tablet 1,000 mg PO Q6H PRN (Reason: Pain) Qty: 0 0RF ferrous sulfate 325 mg (65 mg iron) Tablet 325 mg PO Q48H Qty: 0 0RF docusate sodium 100 mg Capsule 100 mg PO DAILY Qty: 90 0RF ibuprofen 600 mg Tablet 600 mg PO Q6H PRN (Reason: Pain) Qty: 60 0RF oxycodone 5 mg Tablet 5 - 10 mg PO Q4H PRN (Reason: Pain) Qty: 15 0RF Continued docusate sodium [Colace] 100 mg capsule 100 mg PO QDAY DHA 200 mg capsule 200 mg PO .once daily Discontinued ferrous sulfate 325 mg (65 mg iron) tablet 325 mg PO QDAY Discharge Orders: Discharge Order (Routine); Ordered 05/30/23 Ordered By: Latisha Downs Patient Education: OB Over the Counter Medication Information, OB /Bottle Feeding Additional Instructions: Discharge instructions were reviewed with the patient including signs and symptoms of infection and home going medications Lifting Restrictions: 20 pounds for 6 weeks No not submerge incision under water X 2 weeks? Nothing vaginally for 6 weeks: no tampons or intercourse Do not drive while taking narcotic pain medication(s) Off Work or School for 8 weeks 2-week visit: incision check, discuss infant feeding concerns, review control options and screen for anxiety/depression. 6-week visit for an annual exam. Activity Level: Activity as Tolerated Discharge Diet: Regular Follow Up Appointments: [facility] [Provider Group] Forms: [employer]th Info Instructions
[2023-05-30 09:09] VITALS: BP 101/61; PULSE 64; RESP 16; TEMP 36.5; O2SAT 98
[2023-05-30 09:41] VITALS: BP 98/63; PULSE 70; RESP 16; TEMP 36.7; O2SAT 94
== END 2023-05-30 11:54 | disposition home or self-care (01) | DRG 788 ==
PROVIDERS: Obstetrics & Gynecology; Admitting Provider Advanced Practice Midwife; Visit Provider Advanced Practice Midwife
PROC: (CPT 59514; principal; 2023-05-28 21:45)
DX: O48.0 Post-term pregnancy (principal); O76 Abnormality in fetal heart rate and rhythm complicating labor and delivery; O62.2 Other uterine inertia; G89.18 Other acute postprocedural pain; R03.0 Elevated blood-pressure reading, without diagnosis of hypertension; O26.893 Other specified pregnancy related conditions, third trimester; Z67.11 Type A blood, Rh negative; O40.3XX0 Polyhydramnios, third trimester, not applicable or unspecified; O99.02 Anemia complicating childbirth; D64.9 Anemia, unspecified; Z37.0 Single live birth; Z3A.41 41 weeks gestation of pregnancy
CPT/HCPCS: 01967; 01968; 36415; 36430; 64488; 76942; 85018; 85461; 86850; 86900; 86901; 88307; 99140; A9270; C9290; J0456; J0665; J1100; J1200; J1885; J2210; J2274; J2371; J2405; J2590; J2791; J2795; J3010; J7050; J7120

== ENCOUNTER 2023-10-02 08:48 | Outpatient (CLI) | payer OTHER, SELFPAY | END 2023-10-02 08:49 | disposition home or self-care (01) | PROVIDERS: Visit Provider Family Medicine | DX: R19.7 Diarrhea, unspecified (principal) | CPT/HCPCS: 87045; 87046; 87077; 87177; 87209; 87427; 87493; 87505 ==

== ENCOUNTER 2023-11-08 16:29 | Outpatient (CLI) | payer OTHER, SELFPAY ==
--- OUTSIDE RECORDS SUMMARY | 2023-11-08 16:31 | XMS_ITS | Clinical Summary ---
Author Organization [facility] s [facility] Address [place], [place] [address] Care Team Providers Care Textile Converter Name Role Phone Pcp, No Primary Care Provider Unavailabl e Allergies Active Allergy Reactions Criticality Noted Date Comments Penicillins Hives 11/20/2008 Medications Medication Sig Dispensed Refills Start Date End Date Status Ferrous Gluconate 324 mg (38 mg iron) tablet TAKE 1 TABLET(324MG) BY MOUTH DAILY TAKE WITH FOOD. 01/06/2021 Active ibuprofen (ADVIL; MOTRIN) 600 mg tablet Take 600 mg by mouth every 6 hours if needed. 02/02/2021 Active Active Problems Problem Noted Date [...] Used Date Smoking Tobacco: Former Cigarettes 0.2 9.7 S tarted: 02/12/2014 Smokeless Tobacco: Never Tobacco [...] CDT Respiratory Rate 12 04/25/2017 11:27 AM RIBBON CLEANER Oxygen Saturation 98% 02/09/2021 8:57 AM CDT Inhaled Oxygen Concentration - - Weight 90.4 kg (199 lb 3.2 oz) 02/09/2021 8:57 A M CDT Height 168.8 cm (5' 6.44) 12/18/2017 10:39 AM C DT Body Mass Index 31.73 12/18/2017 10:39 AM CDT Plan of Treatment Health Maintenance Due Date Last Done Comments HIV for age 15-65 2002 Hepatitis C screening for age 18-79 2005 Depression screening for age 12+ 11/13/2018 11/13/2017, 10/04/2016, 10/04/2016, Additional history exists BMI (ht and wt on same day) for age 18+ 12/18/2018 12/18/2017, 11/13/2017, 05/18/2017, Additional history exists COVID-19 vaccine series (2022- season) 2022 Influenza for age 9-49 12/23/2023 Pap test for age 21-65 03/21/2024 , 03/21/2021, 10/04/2016, Additional history exists Tetanus booster 11/24/2025 11/25/2015 Tdap Completed 11/25/2015 Pneumococcal series for age 6-64 Aged Out No longer eligible based on patient's age to complete this topic Procedures Procedure Name Priority Date/Time Associated Diagnosis Comments HPV THIN PREP Routine 03/21/2021 12:00 PM RIBBON CLEANER from Last 3 Months or Most Recently Relevant to Health Maintenance Results * HPV HIGH RISK (03/21/2021 12:00 PM RIBBON CLEANER) TYPE 16 Negative Negative 03/24/2021 3:11 PM RIBBON CLEANER [facility] TYPE 18 Negative Negative 03/24/2021 3:11 PM RIBBON CLEANER [facility] OTHER HIGH RISK TYPES Negative Negative 03/24/2021 3:11 PM RIBBON CLEANER [facility] Other (Cervical/Vagina l) 03/21/2021 12:00 PM RIBBON CLEANER 03/23/2021 7:55 AM RIBBON CLEANER Narrative [facility] - 03/24/2021 3:11 PM RIBBON CLEANER HPV types 16, 18, 31, 33, 35, 39, 45, 51, 52, 56, 58, 59, 66 and 68 DNA were undetectable or below the pre-set threshold. Methodology: Jose A Fozia 4800 HPV Test July Caterina [facility]ON [facility] [address] [place] [address], [place] from Last 3 Months or Most Recently Relevant to Health Maintenance Care Teams Textile Converter Relationship Specialty Start Date End Date Pcp, No . PCP - General 02/09/21
== END 2023-11-08 16:30 | disposition home or self-care (01) ==
PROVIDERS: PCP Internal Medicine; Visit Provider Internal Medicine
DX: R19.7 Diarrhea, unspecified (principal); Z13.29 Encounter for screening for other suspected endocrine disorder
CPT/HCPCS: 80053; 84443

== ENCOUNTER 2023-11-19 07:23 | Outpatient (CLI) | payer OTHER, SELFPAY ==
--- OUTSIDE RECORDS SUMMARY | 2023-11-19 07:26 | XMS_ITS | Data Portability ---
Author Organization [place] [facility] [place] [email or web address], [employer] - [id number] Address [address] [place] [address] Assessment No assessment recorded. Plan of Treatment Reminders Order Date Submit Date Provider Last Modified By Organization Details Last Modified Time Details Appointments None recorded. Lab urinalysis , dipstick 2019 020 In-House Results, For Internal Use Only, Do Not Delete/merge, [id number] 0 13:57:54 HPV E6+E7 mRNA, reflex to HPV 16+18+[address] [facility], [address], [place], [address], 0 18:44:29 Referral None recorded. Procedures None recorded. Surgeries None recorded. Imaging None recorded. Medication Orders None recorded. Patient TargetsNo targets recorded. Patient Instructions Encounter Date Encounter Id Patient Instructions Last Modified By Organization Details Last Modified Time 09/25/2019 [id number] healthy living, preventative services information Not available 09/25/2019 13:57:54 nutrition tips - healthy start on eating smart Not available 09/25/2019 13:57:54 10/23/2019 [id number] Desire expectant management for now. Pt instructed to call if decide to discuss control options. Not available 10/23/2019 09:43:54 Reason for Referral None Reported. Results Created Date Observation Date Name Description Value Unit Range Abnormal Flag LastModifiedBy Organization Detail LastModifiedTime 09/25/2019 urina lysis , dipst ick Unknown Analyte Clean Catch Not Available In-House Results For Internal Use Only, Do Not Delete/merge, [id number] 09/25/2019 10:51:31 09/25/2019 urina lysis , dipst [...] For Internal Use Only, Do Not Delete/merge, [id number] 09/25/2019 10:51:31 09/25/2019 urina lysis , dipst ick Unknown Analyte Clear Not Available In-House Results For Internal Use Only, Do Not Delete/merge, [id number] 09/25/2019 10:51:31 09/25/19 20 09/25/2019 HPV E6+E7 mRNA, refle x to HPV 16+18 +45 other info Other Inform ation Not Available [facility] [address], [place], [address], 09/29/2019 18:44:29 09/25/19 20 09/29/2019 HPV E6+E7 mRNA, refle x to HPV 16+18 +45 cervix,thinp rep vial Not Available [facility] [address], [place], [address], 09/29/2019 18:44:29 09/25/19 20 09/29/2019 HPV E6+E7 mRNA, refle x to HPV 16+18 +45 HPV HR (high risk) result Negati ve Not Available [facility] [address], [place], [address], 09/29/2019 18:44:29 Result Notes None recorded. Problems Name Status Onset Date Resolution Date Notes Provider Name and Address Organization Details Recorded Time History of abnormal cervical Papanicolaou smear Active 09/25/19 20 Camille Alejo [facility] [employer] 09/25/2019 10:57:26 History of human papilloma virus infection Active 09/25/19 20 Camille barbosa [facility] [employer] 09/25/2019 10:57:36 Cigarette smoker Active 09/25/19 20 [facility] [employer] 09/25/2019 14:59:48 Problem Notes None recorded. Procedures Surgical History Date Name Laterality Status Provider Name and Address Organization Details Recorded Time 0 Nexplanon / Implanon Removal Procedure Note ([facility]) completed Camille Alejo [facility] [employer] [facility] 10/23/2019 09:28:50 0 Date of Last Pap Smear completed Camille Alejo [facility] 09/30/2019 16:47:05 ENT- Other surgery completed Camille Alejo [facility] 09/25/2019 15:01:21 Imaging Results None recorded. Procedure Notes None recorded. Medical Equipment None Reported. Allergies Allergen ID Allergen Name Allergen Category Reaction Reaction Severity Criticality Documentation Date Start Date Code Code System Note Provider Name and Address Organization Details Recorded Time [id number] Medicinal product containin g penicilli n and acting as antibacte rial agent (product) medicatio n rash Not available Not available 09/25/2019 11263 05 SNOMED Camille Alejo [facility] 0 10:55:34 Medications Name Sig [...] Address Organization Details Last Updated DateTime 0 23002.9 5 g 34.9 kg/m2 167.64 cm 66 /min 122 mm[Hg] 76 mm[Hg] Camille Alejo [facility] 0 10:55:19 Date Recorded Body height Body mass index (BMI) Body weight Systolic blood pressure Diastolic blood pressure Provider Name and Address Organization Details Last Updated DateTime 10/23/2019 167.64 cm 34.9 kg/m2 63956.95 g 122 mm[Hg] 76 mm[Hg] Camille Alejo [facility] 0 09:27:49 Social History Question Answer Notes LastModified by Organizat ion Details LastModified Time Tobacco Smoking Status Current Every Day Smoker Camille Alejo [facility] 09/25/2019 14:59:57 What Is Your Level Of Alcohol Consumption? Occasional [email or web address] Information not available 09/25/2019 Is Blood Transfusion Acceptable In An Emergency? Yes [email or web address] Information not available 09/25/2019 What Is Your Level Of Caffeine Consumption? Moderate [email or web address] Information not available 09/25/2019 How Much Tobacco Do You Chew? None [email or web address] Information not available 09/25/2019 What Type Of Diet Are You Following? REGULAR [email or web address] Information not available 09/25/2019 Do You Or Have You Ever Used E-cigarettes Or Vape? Never Used Electronic Cigarettes [email or web address] Information not available 09/25/2019 Education Post Graduate [email or web address] Informatio n not available 09/25/2019 What Is Your Occupation? Teacher [email or web address] Information not available 09/25/2019 How Many Days In The Past Year Have You Had A Heavy Drinking Consumption (4+ Female, 5+ Male)? 0 [email or web address] Information not available 09/25/2019 Illicit Drugs? No [email or web address] Informati on not available 09/25/2019 History Of Domestic Violence No [email or web address] Information not available 09/25/2019 Marital Status [email or web address] Informati on not available 09/25/2019 Seat Belts Used Routinely Yes [email or web address] Information not available 09/25/2019 Do You Or Have You Ever Used Smokeless Tobacco? Never Used Smokeless Tobacco [email or web address] Information not available 09/25/2019 How Much Tobacco Do You Smoke? 0.25 PPD [email or web address] Information not available 09/25/2019 On What Date Was Tobacco Cessation Counseling Provided? 09/25/2019 [email or web address] Information not available 09/25/2019 How Many Years Have You Smoked Tobacco? 10 [email or web address] Information not available 09/25/2019 Do You Have Symptoms Associated With Zika Virus (fever, Rash, Joint Pain, Or Conjunctivitis)? No [email or web address] Information not available 09/25/2019 Have You Recently (within The Last 12 Weeks, Or During A Current ) Traveled To Or Lived In A Zika-affected Area? No [email or web address] Information not available 09/25/2019 Sex: Unknown Functional Status Question Answer Note LastModified by Organizat ion Details LastModified Time Urinary incontinence assessment performed? Yes [email or web address] Information not available 09/25/2019 What is your exercise level? Occasional [email or web address] Information not available 09/25/2019 Mental Status None recorded. Family History Relationship Description Onset Age of this Age Resolved Age Notes Maternal Grandfather Hypertensive disorder Paternal Grandfather Heart disease Medical History Condition Response ID-Chicken Pox/Shingles Y Gynecological History Statement/Question Response Current Control Method: Nexplanon Sexually active Y Date of LMP 09/14/2019 History of Sexually Transmitted Infectio n Y HPV Test Negative HPV Vaccine Not applicable History of abnormal PAP Yes Date of Last Pap Smear 09/25/2019 Age at Menarche 20 Sexual orientation Heterosexual History of Vulvar Dysplasia N Obstetrics History GPAL:G 0 P 0 0 0 0 Past Encounters Encounter ID Performer Location Encounter Start Date Encounter Closed Date Diagnosis/Indication Diagnosis SNOMED-CT Code [id number] DR KLARISSA BOLDEN MD [id number] [address] [place] [address] 09/25/2019 10:03:24 09/25/2019 11:37:28 Gynecologic examination 63989431 Increased body mass index 44842051 History of human papilloma virus infection 598693036355062 Cigarette smoker 5596144 [id number] KLARISSA BOLDEN MD [id number] [facility] [address] [place] [address] 10/23/2019 09:03:02 10/23/2019 09:48:58 Removal of subcutaneous contraceptive 621974012 Health Concerns Section Related Observation LastModified by Organization Detai ls LastModified Time None Recorded Concern Status LastModified by Organization Details LastModified Time None Recorded Advance Directives Directive None Recorded Payers Encounter Date Sequence Insurance Name Policy Number Policy Yousif Covered Member ID Yousif Member ID Guarantor Name 09/25/2019 1 [facility] [employer] [id number] Roshan Diaz [id number] Clary Diaz 10/23/2019 1 [facility] [employer] [id number] Roshan Diaz [id number] Clary Diaz Notes Date Note Type Note Provider Name and Address Organization Details Recorded Time 09/25/2019 text/html HPI Notes: Annua l Premenopausal ([facility]) Reported by patient. Patient Relationship [...] symptoms. DR KLARISSA BOLDEN MD [address], [address], [place], [address], [facility] [employer] [facility] 09/26/2019 23:27:12 10/23/2019 text/html HPI Notes: 34 y/ o Patient here for Nexplanon removal. Was inserted 3 years ago. Does not want to resume any contraceptive method at current time. No complaints. DR KLARISSA BOLDEN MD [address], [address], [place], [address], [facility] [employer] 10/23/2019 09:43:59 OBGyn Episode No OBEpisode recorded.
--- OUTSIDE RECORDS SUMMARY | 2023-11-19 07:26 | XMS_ITS | Clinical Summary ---
Author Organization [facility] [facility] Address [place], [place] [address] Care Team Providers Care Radio Assembler Name Role Phone Pcp, No Primary Care [...] Used Date Smoking Tobacco: Former Cigarettes 0.2 9.8 S tarted: 02/12/2014 Smokeless Tobacco: Never Tobacco [...] CDT Respiratory Rate 12 04/25/2017 11:27 AM TRAVEL SERVICE CONSULTANT Oxygen Saturation 98% 02/09/2021 8:57 AM CDT [...] HPV THIN PREP Routine 03/21/2021 12:00 PM TRAVEL SERVICE CONSULTANT from Last 3 Months or Most Recently Relevant to Health Maintenance Results * HPV HIGH RISK (03/21/2021 12:00 PM TRAVEL SERVICE CONSULTANT) TYPE 16 Negative Negative 03/24/2021 3:11 PM TRAVEL SERVICE CONSULTANT [facility] TYPE 18 Negative Negative 03/24/2021 3:11 PM TRAVEL SERVICE CONSULTANT [facility] OTHER HIGH RISK TYPES Negative Negative 03/24/2021 3:11 PM TRAVEL SERVICE CONSULTANT [facility] Other (Cervical/Vagina l) 03/21/2021 12:00 PM TRAVEL SERVICE CONSULTANT 03/23/2021 7:55 AM TRAVEL SERVICE CONSULTANT Narrative [facility] - 03/24/2021 3:11 PM TRAVEL SERVICE CONSULTANT HPV types 16, 18, 31, 33, 35, 39, 45, 51, 52, 56, 58, 59, 66 and 68 DNA were undetectable or below the pre-set threshold. Methodology: Jose A Fozia 4800 HPV Test July Caterina [facility] [address] [place] [address], [place] from Last 3 Months or Most Recently Relevant to Health Maintenance Care Teams Radio Assembler Relationship Specialty Start Date End Date Pcp, No . PCP - General 02/09/21
[2023-11-19 07:57] LABS: Ur HCG Qualitative* Negative (Negative)
--- NOTE | 2023-11-19 08:46 | W.ANESCHARGE ---
Anesthesia Charges Start Date/Time Anesthesia Start Date: 11/19/23 Anesthesia Start Time: 08:10 Stop Date/Time Anesthesia Stop Date: 11/19/23 Anesthesia Stop Time: 08:45
== END 2023-11-19 07:24 | disposition home or self-care (01) ==
PROVIDERS: Visit Provider Surgery
DX: R19.7 Diarrhea, unspecified (principal)
CPT/HCPCS: 00811; 45380; 81025; 88305; J2704